=== PATIENT | female | born 1990 | race Caucasian/White ===

== ENCOUNTER → 2017-03-12 | Outpatient (CLI) | payer OTHER ==
[2017-03-14 03:13] LABS: Source CERV/ENDOCER
== END | disposition home or self-care (01) ==
LOC: LAB 08:30
PROVIDERS: Nurse Practitioner Family
DX: Z01.419 Encounter for gynecological examination (general) (routine) without abnormal findings (principal)
CPT/HCPCS: G0145

== ENCOUNTER 2020-07-16 09:26 | Emergency (ER) | payer BC ==
[~2020-07-16] VITALS: Ht 165.1 cm; Wt 83.5 kg
[2020-07-16 10:37] LABS: BASOPHILS ABSOLUTE AUTO 0.03 K/mm3 (0.00-0.23); BASOPHILS PERCENT AUTO 0 % (0-2); EOSINOPHILS ABSOLUTE AUTO 0.04 K/mm3 (0.00-0.68); EOSINOPHILS PERCENT AUTO 1 % (0-6); Hemoglobin 11.7 g/dL (11.5-16.0); IMMATURE GRAN ABSOLUTE AUTO 0.04 K/mm3 (0.00-0.10); IMMATURE GRAN PERCENT AUTO 1 % (0-1); LYMPHOCYTES ABSOLUTE AUTO 1.52 K/mm3 (0.84-5.20); LYMPHOCYTES PERCENT AUTO 19 % (21-46); MONOCYTES ABSOLUTE AUTO 0.32 K/mm3 (0.16-1.47); MONOCYTES PERCENT AUTO 4 % (4-13); Mean Corpuscular HGB 30.9 pg (26.0-34.0); Mean Corpuscular HGB Conc 34.4 g/dL (31.5-36.5); Mean Corpuscular Volume 90 fL (80-100); Mean Platelet Volume 10.2 fL (9.1-12.4); NEUTROPHILS ABSOLUTE AUTO 6.15 K/mm3 (1.96-9.15); NEUTROPHILS PERCENT AUTO 76 % (41-73); Platelet Count 168 K/mm3 (150-400); RDW Standard Deviation 39.2 fL (35.1-46.3); Red Blood Cell Count 3.79 M/mm3 (3.80-5.20)
[2020-07-16 10:45] LABS: Anion Gap 7 mmol/L (6-16); Blood Urea Nitrogen 10 mg/dL (8-24); Bun/Creatinine Ratio 16.1 (12.0-20.0); CO2, Blood 22 mmol/L (21-32); Calcium, Blood 8.2 mg/dL (8.5-10.1); Chloride, Blood 108 mmol/L (98-108); Creatinine, Blood 0.62 mg/dL (0.40-1.00); Glomerular Filtration Rate >60 (60-); Glucose, Blood 108 mg/dL (70-99); Potassium, Blood 3.5 mmol/L (3.5-5.5); Sodium, Blood 137 mmol/L (136-145)
== END 2020-07-16 12:12 | disposition home or self-care (01) ==
LOC: ER 09:26
PROVIDERS: Emergency Medicine
DX: O04.6 Delayed or excessive hemorrhage following (induced) termination of pregnancy (principal); O02.0 Blighted ovum and nonhydatidiform mole; R55 Syncope and collapse
CPT/HCPCS: 36415; 80048; 85025; 93005; 93010; 99284-25; J7120

== ENCOUNTER → 2020-12-13 | Outpatient (CLI) | payer BC ==
[2020-12-13 16:12] LABS: Source, Urine Voided
[2020-12-13 17:39] LABS: Appearance, Urine Clear (Clear); Bilirubin, Urine Neg (Neg); Blood, Urine 1+ (Neg); Color, Urine Yellow (P-Yellow); Glucose Qualitative, Urine Neg (Neg); Ketones, Urine Neg (Neg); Leukocyte Esterase, Urine 1+ (Neg); Nitrite, Urine Neg (Neg); Protein, Urine 1+ (Neg); Urobilinogen, Urine NORM (Normal)
[2020-12-13 17:50] LABS: Bacteria Mod /hpf; Red Blood Cells, Urine 0-2 /hpf (0-2); Squamous Epithelial Cells Rare /hpf (Few)
[2020-12-15 00:07] LABS: CHLAMYDIA TRACHOMATIS, NAA Negative (Negative)
== END | disposition home or self-care (01) ==
LOC: LAB SHORT 16:10
PROVIDERS: Advanced Practice Midwife
DX: Z11.3 Encounter for screening for infections with a predominantly sexual mode of transmission (principal); R82.90 Unspecified abnormal findings in urine
CPT/HCPCS: 81001; 87086; 87491; 87591

== ENCOUNTER → 2021-05-30 | Outpatient (CLI) | payer BC | END | disposition home or self-care (01) | LOC: LAB SHORT 10:20 → LAB 10:20 | DX: O09.92 Supervision of high risk pregnancy, unspecified, second trimester (principal) | CPT/HCPCS: 87081; 87150 ==

== ENCOUNTER 2021-06-26 20:05 | Inpatient (IN) | payer BC ==
[~2021-06-26] VITALS: Ht 165.1 cm; Wt 94.0 kg
[2021-06-26 20:54] LABS: BASOPHILS ABSOLUTE AUTO 0.04 K/mm3 (0.00-0.23); BASOPHILS PERCENT AUTO 0 % (0-2); EOSINOPHILS ABSOLUTE AUTO 0.07 K/mm3 (0.00-0.68); EOSINOPHILS PERCENT AUTO 1 % (0-6); Hematocrit 36.6 % (33.0-51.0); Hemoglobin 12.8 g/dL (11.5-16.0); IMMATURE GRAN ABSOLUTE AUTO 0.14 K/mm3 (0.00-0.10); IMMATURE GRAN PERCENT AUTO 1 % (0-1); LYMPHOCYTES ABSOLUTE AUTO 2.36 K/mm3 (0.84-5.20); LYMPHOCYTES PERCENT AUTO 21 % (21-46); MONOCYTES ABSOLUTE AUTO 0.74 K/mm3 (0.16-1.47); MONOCYTES PERCENT AUTO 7 % (4-13); Mean Corpuscular HGB 31.8 pg (26.0-34.0); Mean Corpuscular Volume 91 fL (80-100); NEUTROPHILS ABSOLUTE AUTO 8.12 K/mm3 (1.96-9.15); NEUTROPHILS PERCENT AUTO 71 % (41-73); Platelet Count 159 K/mm3 (150-400); RDW Coefficient Variation 12.6 % (11.7-14.2); RDW Standard Deviation 41.4 fL (35.1-46.3); Red Blood Cell Count 4.03 M/mm3 (3.80-5.20); White Blood Cell Count 11.47 K/mm3 (4.00-11.30)
[2021-06-26] MEDS ORDERED: ONE-A-DAY PREN1 EAC1 PO (21:22)
[2021-06-26] MEDS ORDERED: FAMO20 PO (21:22)
[2021-06-29 05:20] LABS: BASOPHILS ABSOLUTE AUTO 0.03 K/mm3 (0.00-0.23); BASOPHILS PERCENT AUTO 0 % (0-2); EOSINOPHILS ABSOLUTE AUTO 0.04 K/mm3 (0.00-0.68); EOSINOPHILS PERCENT AUTO 0 % (0-6); Hematocrit 28.5 % (33.0-51.0); Hemoglobin 9.8 g/dL (11.5-16.0); IMMATURE GRAN ABSOLUTE AUTO 0.17 K/mm3 (0.00-0.10); IMMATURE GRAN PERCENT AUTO 1 % (0-1); LYMPHOCYTES ABSOLUTE AUTO 0.79 K/mm3 (0.84-5.20); LYMPHOCYTES PERCENT AUTO 5 % (21-46); MONOCYTES ABSOLUTE AUTO 0.49 K/mm3 (0.16-1.47); MONOCYTES PERCENT AUTO 3 % (4-13); Mean Corpuscular HGB 31.6 pg (26.0-34.0); Mean Corpuscular HGB Conc 34.4 g/dL (31.5-36.5); Mean Corpuscular Volume 92 fL (80-100); Mean Platelet Volume 10.6 fL (9.1-12.4); NEUTROPHILS ABSOLUTE AUTO 13.03 K/mm3 (1.96-9.15); NEUTROPHILS PERCENT AUTO 90 % (41-73); Platelet Count 126 K/mm3 (150-400); RDW Coefficient Variation 13.1 % (11.7-14.2); RDW Standard Deviation 43.5 fL (35.1-46.3); White Blood Cell Count 14.55 K/mm3 (4.00-11.30)
--- NOTE | 2021-06-29 09:00 | NUR ---
ambulate in [place],
[2021-06-29] MEDS ORDERED: Percocet 5-3251 EACH PO (09:14)
[2021-06-29] MEDS ORDERED: IBUP800 PO (09:15)
--- NOTE | 2021-06-29 15:00 | NUR ---
pt reports doing well, encoruaged to call if needs pain medications
--- NOTE | 2021-06-29 16:11 | NUR ---
pt has ambulated in [place] 3 times, voiding without difficulty, doing well. is aware that can have pain medication anytime she needs it. is going better, pt is pumping after feeds and supplementing baby. pt and have a system
--- NOTE | 2021-06-30 13:27 | NUR ---
DC INSTRUCTIONS GONE OVER [facility] PT, DENIES ANY QUESTIONS, HAS PPFU APPT FOR SUNDAY. HAS A FEEDING PLAN WORKED OUT WITH , AND WILL FOLLOW UP WITH CNM IN THE OFFICE TO WORK WITH FEEDS AND PT IS AWARE CAN CALL AND MAKE AND APPT WITH HERE FOR ADDITIONAL HELP IF SHE NEEDS IT. ALREADY HAS SCRIPTS FILLED, IS AWARE ABOUT TYLENOL IN PERCOCET AND NOT TO TAKE ADDITIONAL TYLENOL IF TAKING PERCOCET
== END 2021-06-30 14:00 | disposition home or self-care (01) | DRG 788 ==
LOC: OBS 20:05 → BC 20:08 → OBS 20:11 → BC 20:12
PROVIDERS: Obstetrics & Gynecology; ADMIT Advanced Practice Midwife
PROC: 10H07YZ Insertion of Other Device into Products of Conception, Via Natural or Artificial Opening (ICD-10-PCS; 2021-06-28)
PROC: 10D00Z1 Extraction of Products of Conception, Low, Open Approach (ICD-10-PCS; principal; 2021-06-28 02:15)
DX: O99.892 Other specified diseases and conditions complicating childbirth (principal); Z3A.40 40 weeks gestation of pregnancy; Z37.0 Single live birth; D27.9 Benign neoplasm of unspecified ovary; O64.2XX0 Obstructed labor due to face presentation, not applicable or unspecified; Z86.16 Personal history of COVID-19; Z98.890 Other specified postprocedural states; Z90.89 Acquired absence of other organs; Z88.8 Allergy status to other drugs, medicaments and biological substances; Z88.2 Allergy status to sulfonamides; Z88.1 Allergy status to other antibiotic agents; Z79.899 Other long term (current) drug therapy; Z91.018 Allergy to other foods
CPT/HCPCS: 36415; 51702; 85025; 86850; 86900; 86901; A9270; J0456; J0690; J1885; J2001; J2210; J2405; J2590; J2765; J3010; J7050; J7120

== ENCOUNTER → 2022-06-29 | Outpatient (CLI) | payer OTHER ==
[~2022-06-29] MED LIST: FAMO20 PO; IBUP800 PO; ONE-A-DAY PREN1 EAC1 PO; Percocet 5-3251 EACH PO
[2022-07-05 14:09] LABS: HPV 16 Negative (Negative); HPV 18 Negative (Negative); HPV OTHER HR TYPES Negative (Negative)
== END | disposition home or self-care (01) ==
LOC: LAB SHORT 15:47 → LAB EV 15:47
PROVIDERS: Advanced Practice Midwife
DX: Z01.419 Encounter for gynecological examination (general) (routine) without abnormal findings (principal)
CPT/HCPCS: 87624; G0145

== ENCOUNTER 2022-10-07 04:44 | Emergency (ER) | payer OTHER ==
[~2022-10-07] VITALS: Ht 165.1 cm; Wt 81.7 kg
[2022-10-07 05:32] LABS: BASOPHILS ABSOLUTE AUTO 0.02 K/mm3 (0.00-0.23); BASOPHILS PERCENT AUTO 0 % (0-2); EOSINOPHILS ABSOLUTE AUTO 0.03 K/mm3 (0.00-0.68); EOSINOPHILS PERCENT AUTO 1 % (0-6); Hematocrit 34.1 % (33.0-51.0); Hemoglobin 12.3 g/dL (11.5-16.0); IMMATURE GRAN ABSOLUTE AUTO 0.03 K/mm3 (0.00-0.10); IMMATURE GRAN PERCENT AUTO 1 % (0-1); LYMPHOCYTES ABSOLUTE AUTO 1.89 K/mm3 (0.84-5.20); LYMPHOCYTES PERCENT AUTO 30 % (21-46); MONOCYTES ABSOLUTE AUTO 0.27 K/mm3 (0.16-1.47); MONOCYTES PERCENT AUTO 4 % (4-13); Mean Corpuscular HGB 31.1 pg (26.0-34.0); Mean Corpuscular HGB Conc 36.1 g/dL (31.5-36.5); Mean Corpuscular Volume 86 fL (80-100); Mean Platelet Volume 9.5 fL (9.1-12.4); NEUTROPHILS ABSOLUTE AUTO 4.02 K/mm3 (1.96-9.15); NEUTROPHILS PERCENT AUTO 64 % (41-73); Platelet Count 146 K/mm3 (150-400); RDW Coefficient Variation 12.1 % (11.7-14.2); RDW Standard Deviation 38.2 fL (35.1-46.3); Red Blood Cell Count 3.95 M/mm3 (3.80-5.20); White Blood Cell Count 6.26 K/mm3 (4.00-11.30)
[2022-10-07 06:15] LABS: Albumin, Blood 3.2 g/dL (3.4-5.0); Albumin/Globulin Ratio 0.9 (0.8-1.8); Bilirubin, Total 0.5 mg/dL (0.1-1.0); Bun/Creatinine Ratio 18.7 (12.0-20.0); Calcium, Blood 8.4 mg/dL (8.5-10.1); Creatinine, Blood 0.48 mg/dL (0.40-1.00); Globulin, Blood 3.4 g/dL (2.2-4.0); Potassium, Blood 3.6 mmol/L (3.5-5.5); Total Protein, Blood 6.6 g/dL (6.4-8.2)
[2022-10-07 07:41] VITALS: BP 103/71
== END 2022-10-07 07:40 | disposition home or self-care (01) ==
LOC: ER 04:44
PROVIDERS: Student in an Organized Health Care Education/Training Program
DX: O20.0 Threatened abortion (principal); O99.111 Other diseases of the blood and blood-forming organs and certain disorders involving the immune mechanism complicating pregnancy, first trimester; D69.6 Thrombocytopenia, unspecified; Z88.2 Allergy status to sulfonamides; Z88.1 Allergy status to other antibiotic agents; Z91.018 Allergy to other foods; Z79.899 Other long term (current) drug therapy; Z3A.11 11 weeks gestation of pregnancy
CPT/HCPCS: 76801; 80053; 84702; 85025; 86900; 86901; 99284-25

== ENCOUNTER 2022-10-09 18:38 | Observation (INO) | payer OTHER ==
[~2022-10-09] VITALS: Ht 165.1 cm; Wt 81.7 kg
[2022-10-09 19:12] LABS: BASOPHILS ABSOLUTE AUTO 0.03 K/mm3 (0.00-0.23); BASOPHILS PERCENT AUTO 0 % (0-2); EOSINOPHILS ABSOLUTE AUTO 0.05 K/mm3 (0.00-0.68); EOSINOPHILS PERCENT AUTO 0 % (0-6); Hemoglobin 10.2 g/dL (11.5-16.0); IMMATURE GRAN ABSOLUTE AUTO 0.08 K/mm3 (0.00-0.10); IMMATURE GRAN PERCENT AUTO 1 % (0-1); LYMPHOCYTES PERCENT AUTO 19 % (21-46); MONOCYTES PERCENT AUTO 4 % (4-13); Mean Corpuscular HGB 31.1 pg (26.0-34.0); Mean Corpuscular HGB Conc 35.2 g/dL (31.5-36.5); Mean Corpuscular Volume 88 fL (80-100); Mean Platelet Volume 10.1 fL (9.1-12.4); NEUTROPHILS ABSOLUTE AUTO 8.98 K/mm3 (1.96-9.15); NEUTROPHILS PERCENT AUTO 75 % (41-73); Platelet Count 166 K/mm3 (150-400); RDW Coefficient Variation 12.2 % (11.7-14.2); Red Blood Cell Count 3.28 M/mm3 (3.80-5.20); White Blood Cell Count 11.94 K/mm3 (4.00-11.30)
[2022-10-09 19:51] LABS: Albumin, Blood 2.8 g/dL (3.4-5.0); Albumin/Globulin Ratio 0.9 (0.8-1.8); Bilirubin, Total 0.1 mg/dL (0.1-1.0); Bun/Creatinine Ratio 21.7 (12.0-20.0); Calcium, Blood 8.6 mg/dL (8.5-10.1); Creatinine, Blood 0.51 mg/dL (0.40-1.00); Potassium, Blood 3.3 mmol/L (3.5-5.5); Total Protein, Blood 5.8 g/dL (6.4-8.2)
[2022-10-09 21:01] LABS: BASOPHILS ABSOLUTE AUTO 0.02 K/mm3 (0.00-0.23); BASOPHILS PERCENT AUTO 0 % (0-2); EOSINOPHILS PERCENT AUTO 0 % (0-6); Hematocrit 25.5 % (33.0-51.0); Hemoglobin 8.8 g/dL (11.5-16.0); IMMATURE GRAN ABSOLUTE AUTO 0.09 K/mm3 (0.00-0.10); IMMATURE GRAN PERCENT AUTO 1 % (0-1); LYMPHOCYTES ABSOLUTE AUTO 1.08 K/mm3 (0.84-5.20); LYMPHOCYTES PERCENT AUTO 8 % (21-46); MONOCYTES ABSOLUTE AUTO 0.32 K/mm3 (0.16-1.47); MONOCYTES PERCENT AUTO 2 % (4-13); Mean Corpuscular HGB 30.7 pg (26.0-34.0); Mean Corpuscular HGB Conc 34.5 g/dL (31.5-36.5); Mean Corpuscular Volume 89 fL (80-100); Mean Platelet Volume 10.2 fL (9.1-12.4); NEUTROPHILS ABSOLUTE AUTO 11.62 K/mm3 (1.96-9.15); NEUTROPHILS PERCENT AUTO 89 % (41-73); Platelet Count 144 K/mm3 (150-400); RDW Coefficient Variation 12.1 % (11.7-14.2); RDW Standard Deviation 39.3 fL (35.1-46.3); Red Blood Cell Count 2.87 M/mm3 (3.80-5.20); White Blood Cell Count 13.13 K/mm3 (4.00-11.30)
[2022-10-09 21:26] LABS: Source, Urine Clean Catch
[2022-10-09 21:30] LABS: Appearance, Urine Hazy (Clear); Bilirubin, Urine Neg (Neg); Blood, Urine 5+ (Neg); Color, Urine Yellow (P-Yellow); Glucose Qualitative, Urine Neg (Neg); Ketones, Urine Neg (Neg); Leukocyte Esterase, Urine Neg (Neg); Nitrite, Urine Neg (Neg); Protein, Urine 2+ (Neg); Specific Gravity, Urine 1.025 (1.003-1.022); Urobilinogen, Urine NORM (Normal)
[2022-10-09 21:41] LABS: Amorphous Light (0-Heavy); Bacteria Few /hpf; Granular Casts 0-2 /lpf (0); Red Blood Cells, Urine 25-50 /hpf (0-2); Squamous Epithelial Cells Rare /hpf (Few); White Blood Cells, Urine 0-2 /hpf (0-5)
[2022-10-10] VITALS (8 sets, daily range): BP systolic 92–112; BP diastolic 56–65
--- NOTE | 2022-10-10 01:09 | NUR ---
PT ARRIVED TO ROOM 223 ACCOMPANIED BY . BP STABLE, HR 90'S. INC >1'TEENS WHEN UP, DENIES CP/PRESSURE. PT ALERT, REPORTS DIZZINESS WHEN UP. PT DENIES PAIN, REP VAGINAL BLEEDING DECREASING, URINE YELLOW W/FEW SMALL CLOTS, LIDA PAD IN PLACE W/SMALL AMT DARK RED SPOTTING. DR PRUETT UPDATED, NEW ORDERS REC.
[2022-10-10 03:43] LABS: BASOPHILS ABSOLUTE AUTO 0.02 K/mm3 (0.00-0.23); BASOPHILS PERCENT AUTO 0 % (0-2); EOSINOPHILS ABSOLUTE AUTO 0.02 K/mm3 (0.00-0.68); EOSINOPHILS PERCENT AUTO 0 % (0-6); Hematocrit 21.3 % (33.0-51.0); Hemoglobin 7.5 g/dL (11.5-16.0); IMMATURE GRAN ABSOLUTE AUTO 0.04 K/mm3 (0.00-0.10); IMMATURE GRAN PERCENT AUTO 1 % (0-1); LYMPHOCYTES ABSOLUTE AUTO 2.11 K/mm3 (0.84-5.20); LYMPHOCYTES PERCENT AUTO 27 % (21-46); MONOCYTES ABSOLUTE AUTO 0.28 K/mm3 (0.16-1.47); MONOCYTES PERCENT AUTO 4 % (4-13); Mean Corpuscular HGB 31.1 pg (26.0-34.0); Mean Corpuscular HGB Conc 35.2 g/dL (31.5-36.5); Mean Corpuscular Volume 88 fL (80-100); Mean Platelet Volume 10.2 fL (9.1-12.4); NEUTROPHILS ABSOLUTE AUTO 5.43 K/mm3 (1.96-9.15); NEUTROPHILS PERCENT AUTO 69 % (41-73); Platelet Count 142 K/mm3 (150-400); RDW Coefficient Variation 12.2 % (11.7-14.2); RDW Standard Deviation 39.7 fL (35.1-46.3); Red Blood Cell Count 2.41 M/mm3 (3.80-5.20)
--- NOTE | 2022-10-10 07:34 | NUR ---
PT VSS SINCE ARRIVING TO FLOOR. LIDA PAD W/SMALL AMT DARK RED/BROWN SPOTTING THIS AM, SOME LIGHT PINK BLOOD NOTED AFTER WIPING. PT DENIED ABD PAIN, ABD SOFT TO PALP. PT REP FEELING LESS DIZZY AND APPEARS LESS PALE THIS AM. PT EMOTIONAL THIS AM, SUPPORT PROVIDED. IVF CONT PER ORDERS.
[2022-10-10 15:56] LABS: BASOPHILS ABSOLUTE AUTO 0.02 K/mm3 (0.00-0.23); BASOPHILS PERCENT AUTO 0 % (0-2); EOSINOPHILS ABSOLUTE AUTO 0.02 K/mm3 (0.00-0.68); EOSINOPHILS PERCENT AUTO 0 % (0-6); Hemoglobin 8.2 g/dL (11.5-16.0); IMMATURE GRAN ABSOLUTE AUTO 0.03 K/mm3 (0.00-0.10); IMMATURE GRAN PERCENT AUTO 0 % (0-1); LYMPHOCYTES ABSOLUTE AUTO 1.86 K/mm3 (0.84-5.20); LYMPHOCYTES PERCENT AUTO 27 % (21-46); MONOCYTES ABSOLUTE AUTO 0.28 K/mm3 (0.16-1.47); MONOCYTES PERCENT AUTO 4 % (4-13); Mean Corpuscular HGB 31.8 pg (26.0-34.0); Mean Corpuscular HGB Conc 35.7 g/dL (31.5-36.5); Mean Corpuscular Volume 89 fL (80-100); Mean Platelet Volume 9.8 fL (9.1-12.4); NEUTROPHILS ABSOLUTE AUTO 4.72 K/mm3 (1.96-9.15); NEUTROPHILS PERCENT AUTO 68 % (41-73); Platelet Count 132 K/mm3 (150-400); RDW Coefficient Variation 12.8 % (11.7-14.2); RDW Standard Deviation 41.5 fL (35.1-46.3); Red Blood Cell Count 2.58 M/mm3 (3.80-5.20); White Blood Cell Count 6.93 K/mm3 (4.00-11.30)
[2022-10-10] MEDS ORDERED: FERSU300 PO (16:49)
--- NOTE | 2022-10-10 17:01 | NUR ---
DISCHARGE HAS HAD NO VAGINAL BLEEDING TODAY. URINE CLEAR THIS AFTERNOON. ONLY VERY FEW SCANT SPOTS OF CLOTTED BLOOD THIS AM. NO ABD PAIN & FEELS COMFORTABLE w/ DC HOME. ESCORTTED OUT VIA WC.
== END 2022-10-10 17:01 | disposition home or self-care (01) ==
LOC: ER 18:38 → SURS 18:39
PROVIDERS: Obstetrics & Gynecology; ADMIT Emergency Medicine
DX: O20.9 Hemorrhage in early pregnancy, unspecified (principal); Z3A.12 12 weeks gestation of pregnancy; Z88.2 Allergy status to sulfonamides; Z88.1 Allergy status to other antibiotic agents; Z88.8 Allergy status to other drugs, medicaments and biological substances
CPT/HCPCS: 36415; 36430; 76801; 76817; 80053; 81001; 84702; 85025; 86850; 86900; 86901; 86923; 99285-25; A9270; G0378; J7030; J7050; J7120; P9016

== ENCOUNTER 2022-10-11 13:50 | Inpatient (IN) | payer OTHER ==
[2022-10-11] VITALS (11 sets, daily range): BP systolic 86–118; BP diastolic 50–59
[~2022-10-11] VITALS: Ht 165.1 cm; Wt 81.7 kg
[~2022-10-11 13:50] MED LIST changes: +FERSU300 PO
[2022-10-11 14:25] LABS: Calcium, Ionized (POC) 1.03 mmol/L (1.10-1.46); Chloride (POC) 106 mmol/L (98-108); Creatinine (POC) 0.4 mg/dL (0.6-1.0); Glucose (ISTAT POC) 124 mg/dL (70-99); Hemoglobin (POC) 8.5 g/dL (12.0-16.0); Potassium (POC) 3.4 mmol/L (3.5-5.5); Sodium (POC) 137 mmol/L (135-148); Total CO2 (POC) 17 mmol/L (21-32)
[2022-10-11 14:35] LABS: BASOPHILS ABSOLUTE AUTO 0.02 K/mm3 (0.00-0.23); BASOPHILS PERCENT AUTO 0 % (0-2); EOSINOPHILS ABSOLUTE AUTO 0.03 K/mm3 (0.00-0.68); EOSINOPHILS PERCENT AUTO 0 % (0-6); Hematocrit 26.3 % (33.0-51.0); Hemoglobin 9.2 g/dL (11.5-16.0); IMMATURE GRAN ABSOLUTE AUTO 0.04 K/mm3 (0.00-0.10); IMMATURE GRAN PERCENT AUTO 1 % (0-1); LYMPHOCYTES ABSOLUTE AUTO 2.53 K/mm3 (0.84-5.20); LYMPHOCYTES PERCENT AUTO 35 % (21-46); MONOCYTES ABSOLUTE AUTO 0.24 K/mm3 (0.16-1.47); MONOCYTES PERCENT AUTO 3 % (4-13); Mean Corpuscular HGB 31.6 pg (26.0-34.0); Mean Corpuscular Volume 90 fL (80-100); Mean Platelet Volume 10.4 fL (9.1-12.4); NEUTROPHILS ABSOLUTE AUTO 4.33 K/mm3 (1.96-9.15); NEUTROPHILS PERCENT AUTO 60 % (41-73); Platelet Count 198 K/mm3 (150-400); RDW Standard Deviation 42.5 fL (35.1-46.3); Red Blood Cell Count 2.91 M/mm3 (3.80-5.20); White Blood Cell Count 7.19 K/mm3 (4.00-11.30)
[2022-10-11 14:55] LABS: Albumin, Blood 3.1 g/dL (3.4-5.0); Bilirubin, Total 0.2 mg/dL (0.1-1.0); Bun/Creatinine Ratio 12.1 (12.0-20.0); Calcium, Blood 8.1 mg/dL (8.5-10.1); Creatinine, Blood 0.5 mg/dL (0.40-1.00); Globulin, Blood 3.1 g/dL (2.2-4.0); Potassium, Blood 3.5 mmol/L (3.5-5.5); Total Protein, Blood 6.2 g/dL (6.4-8.2)
[2022-10-11 14:57] LABS: International Normalized Ratio 0.96; Prothrombin Time Results 10.1 Sec (9.7-11.5)
[2022-10-11 16:35] LABS: Hematocrit 25.3 % (33.0-51.0); Hemoglobin 8.6 g/dL (11.5-16.0)
[2022-10-11 21:05] LABS: BASOPHILS ABSOLUTE AUTO 0.02 K/mm3 (0.00-0.23); BASOPHILS PERCENT AUTO 0 % (0-2); EOSINOPHILS PERCENT AUTO 0 % (0-6); Hematocrit 23.4 % (33.0-51.0); Hemoglobin 8.3 g/dL (11.5-16.0); IMMATURE GRAN ABSOLUTE AUTO 0.06 K/mm3 (0.00-0.10); IMMATURE GRAN PERCENT AUTO 1 % (0-1); LYMPHOCYTES ABSOLUTE AUTO 1.81 K/mm3 (0.84-5.20); LYMPHOCYTES PERCENT AUTO 16 % (21-46); MONOCYTES ABSOLUTE AUTO 0.26 K/mm3 (0.16-1.47); MONOCYTES PERCENT AUTO 2 % (4-13); Mean Corpuscular HGB 30.5 pg (26.0-34.0); Mean Corpuscular HGB Conc 35.5 g/dL (31.5-36.5); Mean Corpuscular Volume 86 fL (80-100); Mean Platelet Volume 10.3 fL (9.1-12.4); NEUTROPHILS ABSOLUTE AUTO 9.48 K/mm3 (1.96-9.15); NEUTROPHILS PERCENT AUTO 82 % (41-73); Platelet Count 148 K/mm3 (150-400); RDW Coefficient Variation 15.3 % (11.7-14.2); RDW Standard Deviation 47.6 fL (35.1-46.3); Red Blood Cell Count 2.72 M/mm3 (3.80-5.20); White Blood Cell Count 11.63 K/mm3 (4.00-11.30)
[2022-10-12] VITALS (62 sets, daily range): BP systolic 84–160; BP diastolic 49–103
[2022-10-12 05:58] LABS: BASOPHILS ABSOLUTE AUTO 0.01 K/mm3 (0.00-0.23); BASOPHILS PERCENT AUTO 0 % (0-2); EOSINOPHILS ABSOLUTE AUTO 0.03 K/mm3 (0.00-0.68); EOSINOPHILS PERCENT AUTO 0 % (0-6); Hematocrit 18.8 % (33.0-51.0); Hemoglobin 6.6 g/dL (11.5-16.0); IMMATURE GRAN ABSOLUTE AUTO 0.08 K/mm3 (0.00-0.10); IMMATURE GRAN PERCENT AUTO 1 % (0-1); LYMPHOCYTES ABSOLUTE AUTO 2.11 K/mm3 (0.84-5.20); LYMPHOCYTES PERCENT AUTO 27 % (21-46); MONOCYTES ABSOLUTE AUTO 0.28 K/mm3 (0.16-1.47); MONOCYTES PERCENT AUTO 4 % (4-13); Mean Corpuscular HGB 30.3 pg (26.0-34.0); Mean Corpuscular HGB Conc 35.1 g/dL (31.5-36.5); Mean Corpuscular Volume 86 fL (80-100); Mean Platelet Volume 10.1 fL (9.1-12.4); NEUTROPHILS ABSOLUTE AUTO 5.32 K/mm3 (1.96-9.15); NEUTROPHILS PERCENT AUTO 68 % (41-73); Platelet Count 126 K/mm3 (150-400); RDW Coefficient Variation 15.3 % (11.7-14.2); RDW Standard Deviation 47.1 fL (35.1-46.3); Red Blood Cell Count 2.18 M/mm3 (3.80-5.20); White Blood Cell Count 7.83 K/mm3 (4.00-11.30)
--- NOTE | 2022-10-12 08:34 | NUR ---
plan of care for today per dr nassar, a repeat US, advance pt to regular diet and to give 1 unit of packed red blood cells to pt pt up to bathroom, 700 cc void that was yellow, no pink or red in urine, very scant amount of blood about 1/2 cm wide and 3 cm long not saturated into the pad
--- NOTE | 2022-10-12 09:30 | NUR ---
TALKED TO DR PRUETT. PT HAVING A LITTLE MORE BLEEDING VAGINALLY AND US WAS GOING TO DO THE TRANSVAG US. DR PRUETT REPORTS OK TO CONTINUE TO DO THE TRANSVAG US WITH THE BLEEDING
--- NOTE | 2022-10-12 12:04 | NUR ---
UP TO BATHROOM, WAS ABLE TO POOP. PT HAD VERY SCANT VAG BLEEDING 1/2 CM BY 2 CM ON PAD THAT WAS VERY DARK. CURRENTLY IN BED HAVING A LITTLE MORE DISCHARGE, LOOKS LIKE A WATERY RED IN COLOR.
--- NOTE | 2022-10-12 12:58 | NUR ---
dr nassar talking with pt. updating pt on some of the us report.
--- NOTE | 2022-10-12 13:52 | NUR ---
PT IS SL, DR PRUETT REPORTED THAT WHEN DONE WITH BLOOD COULD SL PT, WILL CALL FOR IV US. RT ARM A LITTLE PUFFY, BUT FLUSHES WELL AND PT CAN TASTE SALINE FLUSH. THE LT WRIST IS TENDER TO FLUSH AND INFUSE FLUIDS THRU.
--- NOTE | 2022-10-12 13:55 | NUR ---
UP TO BATHROOM. LIGHT AMOUNT OF BLEEDING ON PAD, NOT ENCOUGH TO WEIGH LOOKED MORE WATERY THAN BRIGHT RED BLEEDING. CALLED PCU FOR A IV US. THEY REPORT WILL BE DOWN IN A LITTLE WHILE TO TRY ONE
--- NOTE | 2022-10-12 13:59 | NUR ---
1030 SHAGGY CALLED WITH US REPORT FOR DR PRUETT, CALLED DR PRUETT WITH RESULT.
--- NOTE | 2022-10-12 14:44 | NUR ---
DR PRUETT CALLED TO COME, GOT PT BACK TO BED FROM TOILET BLOOD JUST DRIPPING FROM VAGINA. PT HAS THE TOILET HAT FILLED
[2022-10-12 15:12] LABS: BASOPHILS ABSOLUTE AUTO 0.01 K/mm3 (0.00-0.23); BASOPHILS PERCENT AUTO 0 % (0-2); EOSINOPHILS ABSOLUTE AUTO 0.03 K/mm3 (0.00-0.68); EOSINOPHILS PERCENT AUTO 0 % (0-6); Hematocrit 22.9 % (33.0-51.0); Hemoglobin 8.1 g/dL (11.5-16.0); IMMATURE GRAN ABSOLUTE AUTO 0.07 K/mm3 (0.00-0.10); IMMATURE GRAN PERCENT AUTO 1 % (0-1); LYMPHOCYTES ABSOLUTE AUTO 2.15 K/mm3 (0.84-5.20); LYMPHOCYTES PERCENT AUTO 27 % (21-46); MONOCYTES ABSOLUTE AUTO 0.34 K/mm3 (0.16-1.47); MONOCYTES PERCENT AUTO 4 % (4-13); Mean Corpuscular HGB 30.2 pg (26.0-34.0); Mean Corpuscular HGB Conc 35.4 g/dL (31.5-36.5); Mean Corpuscular Volume 85 fL (80-100); Mean Platelet Volume 10.3 fL (9.1-12.4); NEUTROPHILS ABSOLUTE AUTO 5.45 K/mm3 (1.96-9.15); NEUTROPHILS PERCENT AUTO 68 % (41-73); Platelet Count 152 K/mm3 (150-400); RDW Coefficient Variation 15.3 % (11.7-14.2); RDW Standard Deviation 46.5 fL (35.1-46.3); Red Blood Cell Count 2.68 M/mm3 (3.80-5.20); White Blood Cell Count 8.05 K/mm3 (4.00-11.30)
--- NOTE | 2022-10-12 15:55 | NUR ---
DR PRUETT AT BEDSIDE, PT TO GT 400MCG CYTO ORALLY BUCALLY
--- NOTE | 2022-10-12 16:05 | NUR ---
LAST 10 MINUTES PT HAS BEEN HOT, SWEATY, TACHYCARDIC, DR PRUETT AWARE, BLOOD PRESSURE IS IN THE RANGE IT HAS BEEN IN [place]. BIOX IS 96-99%
--- NOTE | 2022-10-12 16:10 | NUR ---
DR PRUETT PREPARING PT FOR OR, CALLING NOW, PT CONTINUES TO BLEED VAGINALLY
--- NOTE | 2022-10-12 16:14 | NUR ---
CONSENTING PT FOR OR FOR D AND C,
--- NOTE | 2022-10-12 16:25 | NUR ---
DAY SURGERY READY FOR PT, TAKING PT UP VIA BED TO DAYSURGERY, REPORT GIVEN, DR PRUETT REMAINED AT PT BEDSIDE ANSWERING QUESTIONS. BLOOD FINISHING UP IN DAYSURGERY AND LR AT 250/HR INFUSING ON A PUMP
--- NOTE | 2022-10-12 16:56 | NUR ---
10/12/22 2917 Carli Kapadia PATIENT NOTED TO BE PALE AND DIAPHORETIC. JOLIE BLEEDING NOTED FROM VAGINA.
--- NOTE | 2022-10-12 17:03 | NUR ---
PT TO [facility] VIA BED FOR BRIEF STOP EN ROUTE TO OR FOR EMERGENCY D&C. PT ESCORTED BY 2 FBP RN, DR. PRUETT & PT'S SPOUSE. PT COVERED IN ONLY A SHEET C/O BEING HOT; COLD WASH CLOTH ON NECK, ICE PACK ON FOREHEAD. PT APPEARS PALE & CLAMMY, WARM TO TOUCH. LACTATED RINGERS & BLOOD TRANSFUSING VIA SEPARATE LINES. PT HYPOTENSIVE & TACHYCARDIC UPON ARRIVAL. LR & BLOOD LINES BOTH WIDE OPEN. DR. PRUETT AT BEDSIDE THROUGHOUT STOP IN [facility]. PATIENT & SPOUSE BOTH CALM, ANSWERS APPROPRIATELY, VERBALIZING UNDERSTANDING OF PLAN OF CARE, AND IN AGREEMENT.
--- NOTE | 2022-10-12 18:25 | NUR ---
HIMA CNM IN ROOM TALKING WITH PT
--- NOTE | 2022-10-12 18:46 | NUR ---
HOLDING OFF ON IM PITOCIN, PT DOESNT WANT IT AT THIS TIME, PT HAS BEEN IN ROOM FOR 30+ MINUTES AND PAD HAS NO DRAINAGE ON IT.
[2022-10-12 21:22] LABS: Hematocrit 27.4 % (33.0-51.0); Hemoglobin 9.9 g/dL (11.5-16.0); Mean Corpuscular HGB 30.8 pg (26.0-34.0); Mean Corpuscular HGB Conc 36.1 g/dL (31.5-36.5); Mean Corpuscular Volume 85 fL (80-100); Mean Platelet Volume 10.2 fL (9.1-12.4); Platelet Count 142 K/mm3 (150-400); RDW Coefficient Variation 15.1 % (11.7-14.2); RDW Standard Deviation 46.5 fL (35.1-46.3); Red Blood Cell Count 3.21 M/mm3 (3.80-5.20); White Blood Cell Count 15.55 K/mm3 (4.00-11.30)
[2022-10-13] VITALS (9 sets, daily range): BP systolic 96–115; BP diastolic 52–61
[2022-10-13 06:48] LABS: Hematocrit 20.2 % (33.0-51.0); Hemoglobin 7.3 g/dL (11.5-16.0); Mean Corpuscular HGB 30.5 pg (26.0-34.0); Mean Corpuscular HGB Conc 36.1 g/dL (31.5-36.5); Mean Corpuscular Volume 85 fL (80-100); Mean Platelet Volume 10.4 fL (9.1-12.4); Platelet Count 129 K/mm3 (150-400); RDW Coefficient Variation 15.5 % (11.7-14.2); RDW Standard Deviation 46.5 fL (35.1-46.3); Red Blood Cell Count 2.39 M/mm3 (3.80-5.20); White Blood Cell Count 10.35 K/mm3 (4.00-11.30)
== END 2022-10-13 18:10 | disposition home or self-care (01) | DRG 770 ==
LOC: ER 13:50 → BC 17:38
PROVIDERS: Emergency Medicine; Physician Assistant; ADMIT Obstetrics & Gynecology
PROC: 0U7C7ZZ Dilation of Cervix, Via Natural or Artificial Opening (ICD-10-PCS; 2022-10-12)
PROC: 30233N1 Transfusion of Nonautologous Red Blood Cells into Peripheral Vein, Percutaneous Approach (ICD-10-PCS; 2022-10-12)
PROC: 10D17ZZ Extraction of Products of Conception, Retained, Via Natural or Artificial Opening (ICD-10-PCS; principal; 2022-10-12 16:30)
DX: O03.1 Delayed or excessive hemorrhage following incomplete spontaneous abortion (principal); D62 Acute posthemorrhagic anemia; O67.8 Other intrapartum hemorrhage; I95.9 Hypotension, unspecified; Z88.2 Allergy status to sulfonamides; Z88.8 Allergy status to other drugs, medicaments and biological substances; Z91.018 Allergy to other foods; Z79.899 Other long term (current) drug therapy
CPT/HCPCS: 36415; 36430; 76801; 76817; 76998; 80047; 80053; 84702; 85014; 85018; 85025; 85027; 85610; 85730; 86850; 86900; 86901; 86923; 88305; 96361; 96374; 99285-25; A9270; J0690; J1100; J1720; J1885; J2250; J2371; J2405; J2590; J2704; J2916; J3010; J7030; J7120; P9016

== ENCOUNTER 2022-10-17 07:45 | Inpatient (IN) | payer OTHER ==
[~2022-10-17] VITALS: Ht 165.1 cm; Wt 85.8 kg
[2022-10-17] VITALS (34 sets, daily range): BP systolic 83–109; BP diastolic 37–87
[2022-10-17 08:20] LABS: Calcium, Ionized (POC) 1.16 mmol/L (1.10-1.46); Chloride (POC) 108 mmol/L (98-108); Creatinine (POC) 0.6 mg/dL (0.6-1.0); Glucose (ISTAT POC) 92 mg/dL (70-99); Hemoglobin (POC) 7.8 g/dL (12.0-16.0); Potassium (POC) 3.6 mmol/L (3.5-5.5); Sodium (POC) 141 mmol/L (135-148); Total CO2 (POC) 23 mmol/L (21-32)
[2022-10-17 09:16] LABS: Bilirubin, Total 0.4 mg/dL (0.1-1.0); Bun/Creatinine Ratio 13.6 (12.0-20.0); Calcium, Blood 8.2 mg/dL (8.5-10.1); Creatinine, Blood 0.66 mg/dL (0.40-1.00); Globulin, Blood 2.9 g/dL (2.2-4.0); Potassium, Blood 3.6 mmol/L (3.5-5.5); Total Protein, Blood 5.9 g/dL (6.4-8.2)
[2022-10-17 09:32] LABS: BASOPHILS ABSOLUTE AUTO 0.01 K/mm3 (0.00-0.23); BASOPHILS PERCENT AUTO 0 % (0-2); EOSINOPHILS ABSOLUTE AUTO 0.05 K/mm3 (0.00-0.68); EOSINOPHILS PERCENT AUTO 1 % (0-6); Hematocrit 20.4 % (33.0-51.0); Hemoglobin 6.9 g/dL (11.5-16.0); IMMATURE GRAN ABSOLUTE AUTO 0.07 K/mm3 (0.00-0.10); IMMATURE GRAN PERCENT AUTO 1 % (0-1); LYMPHOCYTES PERCENT AUTO 13 % (21-46); MONOCYTES ABSOLUTE AUTO 0.21 K/mm3 (0.16-1.47); MONOCYTES PERCENT AUTO 4 % (4-13); Mean Corpuscular HGB 31.5 pg (26.0-34.0); Mean Corpuscular HGB Conc 33.8 g/dL (31.5-36.5); Mean Corpuscular Volume 93 fL (80-100); Mean Platelet Volume 9.9 fL (9.1-12.4); NEUTROPHILS ABSOLUTE AUTO 4.82 K/mm3 (1.96-9.15); NEUTROPHILS PERCENT AUTO 81 % (41-73); Platelet Count 142 K/mm3 (150-400); RDW Coefficient Variation 17.2 % (11.7-14.2); RDW Standard Deviation 56.9 fL (35.1-46.3); Red Blood Cell Count 2.19 M/mm3 (3.80-5.20); White Blood Cell Count 5.96 K/mm3 (4.00-11.30)
[2022-10-17 14:57] LABS: BASOPHILS ABSOLUTE AUTO 0.02 K/mm3 (0.00-0.23); BASOPHILS PERCENT AUTO 0 % (0-2); EOSINOPHILS ABSOLUTE AUTO 0.03 K/mm3 (0.00-0.68); EOSINOPHILS PERCENT AUTO 0 % (0-6); Hematocrit 26.9 % (33.0-51.0); Hemoglobin 9.2 g/dL (11.5-16.0); IMMATURE GRAN ABSOLUTE AUTO 0.07 K/mm3 (0.00-0.10); IMMATURE GRAN PERCENT AUTO 1 % (0-1); LYMPHOCYTES ABSOLUTE AUTO 1.13 K/mm3 (0.84-5.20); LYMPHOCYTES PERCENT AUTO 17 % (21-46); MONOCYTES ABSOLUTE AUTO 0.25 K/mm3 (0.16-1.47); MONOCYTES PERCENT AUTO 4 % (4-13); Mean Corpuscular HGB 30.9 pg (26.0-34.0); Mean Corpuscular HGB Conc 34.2 g/dL (31.5-36.5); Mean Corpuscular Volume 90 fL (80-100); Mean Platelet Volume 10.1 fL (9.1-12.4); NEUTROPHILS ABSOLUTE AUTO 5.24 K/mm3 (1.96-9.15); NEUTROPHILS PERCENT AUTO 78 % (41-73); Platelet Count 178 K/mm3 (150-400); RDW Coefficient Variation 16.4 % (11.7-14.2); RDW Standard Deviation 52.1 fL (35.1-46.3); Red Blood Cell Count 2.98 M/mm3 (3.80-5.20); White Blood Cell Count 6.74 K/mm3 (4.00-11.30)
--- NOTE | 2022-10-17 18:00 | NUR ---
10/17/[address] PERRY NOTES FOR BLOOD AND FFP ADMINISTRATION. SEE DR GARNICA'S NOTES FOR BALLOON/CATHETER INSERTION INTO UTERUS, THAT REMAINED IN UTERUS.
[2022-10-17 18:13] LABS: Magnesium, Blood 1.6 mg/dL (1.6-2.4)
[2022-10-17 19:03] LABS: BASOPHILS ABSOLUTE AUTO 0.01 K/mm3 (0.00-0.23); BASOPHILS PERCENT AUTO 0 % (0-2); EOSINOPHILS ABSOLUTE AUTO 0.01 K/mm3 (0.00-0.68); EOSINOPHILS PERCENT AUTO 0 % (0-6); Hematocrit 23.6 % (33.0-51.0); IMMATURE GRAN ABSOLUTE AUTO 0.09 K/mm3 (0.00-0.10); IMMATURE GRAN PERCENT AUTO 1 % (0-1); LYMPHOCYTES ABSOLUTE AUTO 0.68 K/mm3 (0.84-5.20); LYMPHOCYTES PERCENT AUTO 9 % (21-46); MONOCYTES ABSOLUTE AUTO 0.19 K/mm3 (0.16-1.47); MONOCYTES PERCENT AUTO 3 % (4-13); Mean Corpuscular HGB 31.1 pg (26.0-34.0); Mean Corpuscular HGB Conc 33.9 g/dL (31.5-36.5); Mean Corpuscular Volume 92 fL (80-100); Mean Platelet Volume 10.1 fL (9.1-12.4); NEUTROPHILS ABSOLUTE AUTO 6.33 K/mm3 (1.96-9.15); NEUTROPHILS PERCENT AUTO 87 % (41-73); Platelet Count 118 K/mm3 (150-400); RDW Coefficient Variation 14.6 % (11.7-14.2); RDW Standard Deviation 47.5 fL (35.1-46.3); Red Blood Cell Count 2.57 M/mm3 (3.80-5.20); White Blood Cell Count 7.31 K/mm3 (4.00-11.30)
--- NOTE | 2022-10-17 19:10 | NUR ---
PATIENT ARRIVED TO ICU 10 VIA GURNEY FROM OR, TRANSFER TO BED WITH SLIDER SHEET AND PLACED ON ICU MONITORS. PATIENT A&O X3. INTRAUTERINE HOLCOMB IN PLACE WITH BALLOON WITH 30 CC FULL PER DOCTOR NAHUN. SMALL AMT OF BRIGHT RED BLOOD DRAINING INTO BAG VIA GRAVITY. HOLCOMB IN PLACE DRAINING CLEAR YELLOW URINE. PERIAREA AND CATH CARE DONE. ABD SOFT. PATIENT C/O SLIGHT ABD CRAMPING. DOCTOR NESHA AND DOCTOR GARNICA AT BEDSIDE. MONITOR SHOWING SINUS TACH. LUNG SOUNDS CLEAR ON RA. BP SOFT. PATIENTS JOSE AT BEDSIDE PROVIDING GOOD SUPPORT, PATIENT TEARFUL AT TIMES.
[2022-10-17 19:18] LABS: International Normalized Ratio 1.08; Prothrombin Time Results 11.3 Sec (9.7-11.5)
[2022-10-17 19:22] LABS: Magnesium, Blood 1.5 mg/dL (1.6-2.4)
[2022-10-17 19:23] LABS: Calcium, Blood 7.8 mg/dL (8.5-10.1)
--- NOTE | 2022-10-17 19:41 | NUR ---
PT CAME TO PACU AT 175 A/O ON A GURNEY WITH OR STAFF AND DR ANDREWS PRESENT . DR PERRY STAYED AT BEDSIDE UNTIL PT WAS TRANSFERRED TO ICU at 1909. RAMSES RN CAME TO PACU AT 1814 AND STARTED UNIT OF PRBC PER DR PERRY REQUEST AT 1817. PT TOLERATED THIS WITH NO PROBLEM . YONAS MAXWELL WAS ON PT AND SHE TOLD ME SHE WAS COMFORTABLE . LAB WAS HERE TO DRAW BLOOD AND RAMSES LINTON ASSISTED. PT REMAINED A/O DURING TIME IN PACU . HOLCOMB BAG WITH URINE WAS EMPTIED OF 2000 CLEAR URINE AT D/C FROM PACU FOLEYBAG FOR UTERUS HAD SCANT RED DRNG WHEN SHE ARRIVED AND SAME WHEN TRANSFERRED TO ICU.
[2022-10-17 22:26] LABS: Hematocrit 24.9 % (33.0-51.0); Hemoglobin 8.6 g/dL (11.5-16.0)
[2022-10-17 22:36] LABS: Source, Urine Foley catheter
[2022-10-17 23:31] LABS: Appearance, Urine Clear (Clear); Bilirubin, Urine Neg (Neg); Blood, Urine Neg (Neg); Color, Urine Yellow (P-Yellow); Glucose Qualitative, Urine Neg (Neg); Ketones, Urine Neg (Neg); Leukocyte Esterase, Urine Neg (Neg); Nitrite, Urine Neg (Neg); Protein, Urine Neg (Neg); Urobilinogen, Urine NORM (Normal)
[2022-10-18] VITALS (60 sets, daily range): BP systolic 82–132; BP diastolic 45–87
--- NOTE | 2022-10-18 01:00 | NUR ---
PATIENT RESTING QUIETLY, AWAKENS TO SLIGHT STIMULI. C/O SLIGHT MOON. DA PO WITHOUT DIFFICULTY. NEXT DOSE OF TYLENOL 0200. HEART RATE NOW 80-90'S BP STABLE. NO FURTHER DRAINAGE SEEN IN INTRAUTERINE HOLCOMB. GOOD URINE OUTPUT. H&H STABLE
[2022-10-18 05:55] LABS: BASOPHILS ABSOLUTE AUTO 0.01 K/mm3 (0.00-0.23); BASOPHILS PERCENT AUTO 0 % (0-2); EOSINOPHILS PERCENT AUTO 0 % (0-6); Hemoglobin 7.8 g/dL (11.5-16.0); IMMATURE GRAN ABSOLUTE AUTO 0.13 K/mm3 (0.00-0.10); IMMATURE GRAN PERCENT AUTO 1 % (0-1); LYMPHOCYTES ABSOLUTE AUTO 0.91 K/mm3 (0.84-5.20); LYMPHOCYTES PERCENT AUTO 10 % (21-46); MONOCYTES ABSOLUTE AUTO 0.26 K/mm3 (0.16-1.47); MONOCYTES PERCENT AUTO 3 % (4-13); Mean Corpuscular HGB 30.8 pg (26.0-34.0); Mean Corpuscular HGB Conc 33.9 g/dL (31.5-36.5); Mean Corpuscular Volume 91 fL (80-100); Mean Platelet Volume 10.4 fL (9.1-12.4); NEUTROPHILS ABSOLUTE AUTO 7.71 K/mm3 (1.96-9.15); NEUTROPHILS PERCENT AUTO 86 % (41-73); Platelet Count 132 K/mm3 (150-400); RDW Coefficient Variation 15.2 % (11.7-14.2); RDW Standard Deviation 48.8 fL (35.1-46.3); Red Blood Cell Count 2.53 M/mm3 (3.80-5.20); White Blood Cell Count 9.02 K/mm3 (4.00-11.30)
--- NOTE | 2022-10-18 06:02 | NUR ---
PATIENT SLEEPING OFF AND ON T/O NIGHT. C/O MOON WITH SOME RELIEF WITH TYLENOL AND REPOSITIONING IN BED. LOW ABD CRAMPING COMES AND GOES. ABD REMAINS SOFT. TYLENOL PO GIVEN Q6 T/O NIGHT. INTRAUTERINE HOLCOMB IN PLACE DRAINING TOTAL OF 20 CC RED DRAINAGE T/O NIGHT. HEART RATE NOW IN THE 80-90'S. PATIENTS JOSE REMAINS AT BEDSIDE PROVIDING GOOD SUPPORT. AWAITING AM LABS
[2022-10-18 06:23] LABS: Bun/Creatinine Ratio 9.7 (12.0-20.0); Calcium, Blood 7.4 mg/dL (8.5-10.1); Creatinine, Blood 0.62 mg/dL (0.40-1.00); Magnesium, Blood 1.6 mg/dL (1.6-2.4); Phosphorus, Blood 4.4 mg/dL (2.5-4.9); Potassium, Blood 4.2 mmol/L (3.5-5.5)
--- NOTE | 2022-10-18 06:41 | NUR ---
DOCTOR NESHA NOTIFIED OF AM LABS AND GIVEN UPDATE ON PATIENT. PLAN TO CONTINUE TO MONITOR FOR ACTIVE BLEEDING.
[2022-10-18 10:45] LABS: Hematocrit 20.1 % (33.0-51.0); Hemoglobin 7.2 g/dL (11.5-16.0)
--- NOTE | 2022-10-18 11:08 | NUR ---
CARE OF PT ASSUMED AT 0700. PT AWAKE IN BED W AT BEDSIDE. PT DENIES C/O PAIN. ABD SOFT. HOLCOMB TO UTERUS W SCANT BLOOD TO HOLCOMB CATH LINE; NO NEW BLOOD IN BAG. SCANT SS VAGINAL DISCHARGE. PT HYPOTENSIVE W MAP >65, TACHY W RATE 100-120 DEPENDING ON MOVEMENT. LR AT 150CC/HR X 2LITER, ON 2ND LITER. DR JEFFRIES IN THIS AM TO SEE PT. H&H DRAWN AT 1000, RESULTS GIVEN TO DR JEFFRIES AND DR TONG. T/O RECIEVED FROM DR TONG TO REMOVE 5CC/HR FROM HOLCOMB CATH TO UTERUS. PT HAS BEEN TOLERATING THIS WITHOUT ANY BLEEDING. ANCEF STARTED. FBP CALLED TO ASK FOR BEREAVEMENT CARE; BEREAVEMENT RN WILL COME TO VISIT PT TODAY.
--- NOTE | 2022-10-18 11:57 | NUR ---
20CC REMOVED FROM CATHETER IN UTERUS, NO BLEEDING NOTED. NO NEW VAGINAL DISCHARGE, NO COMPLAINTS OF PAIN/CRAMPING. NO CHANGE IN VITAL SIGNS. LR STOPPED PER DR JEFFRIES, PT TOLERATING PO FLUIDS.
--- NOTE | 2022-10-18 12:31 | NUR ---
PT C/O FEELING HER HEART "BEAT FASTER", SHE WAS TRYING TO FALL ASLEEP. NO NEW BLEEDING PRESENT; NO NEW BLOOD TO CATHETER TUBING, NO VAGINAL BLEEDING NOTED. HEART RATE 110-118, BP REMAINS HYPOTENSIVE W MAP >65.
--- NOTE | 2022-10-18 14:55 | NUR ---
DR TONG IN TO SEE PT AND SPENT ABOUT 35+ MIN W PT AND PT'S . WATER; 30CC REMOVED FROM CATHETER OVER 6HRS ORDERED. PT HAS HAD NO BLEEDING. POWERGLIDE PLACED TO JUAN MIGUEL; PT IS DIFFICULT TO DRAW LABS ON AND REQUIRES MULTIPLE STICKS.
[2022-10-18 16:23] LABS: Hematocrit 20.3 % (33.0-51.0); Hemoglobin 7.1 g/dL (11.5-16.0)
--- NOTE | 2022-10-18 17:23 | NUR ---
CATHETER FROM UTERUS REMOVED AT 1615 W/O ISSUES, PT DA WELL; SCANT AMT OF BLOOD TO TIP OF CATHETER. H&H STABLE. DR TONG CALLED AND GIVEN UPDATE. ORDERS RECEIVED TO AILYN HOLCOMB, START REGULAR DIET, TRANSFER TO SURGICAL FLOOR W DAMIEN, AILYN CAMACHO, UP AD KELSEY AFTER CHECKING ORTHOSTAIC PRESSURES. AICHA ROBERTSON'D W/O ISSUES, PT DA WELL. DIET ORDERED.
--- NOTE | 2022-10-18 19:00 | NUR ---
ASSUMED CARE CARE WAS ASSUMED OF SHAGGY AT 1900, REPORT GIVEN BY SHEILA LINTON. PT LAYING IN BED UPON ENTRY INTO ROOM, FAMILY AT BEDSIDE. PT A/O X4, ABLE TO MAKE NEEDS KNOWN. PT'S ON ROOM AIR, WHEN 02 SATS SPOT CHECKED SPO2 >95%. PT ON CONTINUOUS CARDIAC MONITORING, SINUS TACH REFLECTED ON MONITOR. BP SOFT, SBP 90s. MAP >65. PT'S POWERGLIDE AND PIV SL.
[2022-10-19] VITALS (40 sets, daily range): BP systolic 90–118; BP diastolic 55–96
[2022-10-19 04:19] LABS: BASOPHILS ABSOLUTE AUTO 0.01 K/mm3 (0.00-0.23); BASOPHILS PERCENT AUTO 0 % (0-2); EOSINOPHILS ABSOLUTE AUTO 0.09 K/mm3 (0.00-0.68); EOSINOPHILS PERCENT AUTO 2 % (0-6); Hematocrit 19.5 % (33.0-51.0); Hemoglobin 6.7 g/dL (11.5-16.0); IMMATURE GRAN ABSOLUTE AUTO 0.11 K/mm3 (0.00-0.10); IMMATURE GRAN PERCENT AUTO 2 % (0-1); LYMPHOCYTES ABSOLUTE AUTO 1.39 K/mm3 (0.84-5.20); LYMPHOCYTES PERCENT AUTO 26 % (21-46); MONOCYTES ABSOLUTE AUTO 0.25 K/mm3 (0.16-1.47); MONOCYTES PERCENT AUTO 5 % (4-13); Mean Corpuscular HGB 30.9 pg (26.0-34.0); Mean Corpuscular HGB Conc 34.4 g/dL (31.5-36.5); Mean Corpuscular Volume 90 fL (80-100); NEUTROPHILS ABSOLUTE AUTO 3.52 K/mm3 (1.96-9.15); NEUTROPHILS PERCENT AUTO 66 % (41-73); Platelet Count 123 K/mm3 (150-400); RDW Coefficient Variation 15.9 % (11.7-14.2); RDW Standard Deviation 49.9 fL (35.1-46.3); Red Blood Cell Count 2.17 M/mm3 (3.80-5.20); White Blood Cell Count 5.37 K/mm3 (4.00-11.30)
--- NOTE | 2022-10-19 06:12 | NUR ---
SHIFT SUMMARY SHAGGY CONTINUES TO BE A/O X4. PT HAS BEEN ABLE TO MAKE NEEDS KNOWN THIS SHIFT AND USED CALL LIGHT APPROPRIATELY. PT WAS ABLE TO AMBULATE TO BATHROOM WITH SBA THROUGHOUT THE SHIFT. PT HAD SMALL AMOUNT OF SPOTTING ON PERINEAL PADS THROUGHOUT THE SHIFT. RECENT HGB VALUE CAME BACK LOW. PER TELEPHONE ORDERS FROM , 1 UNIT OF PRBCs CURRENTLY TRANSFUSING. PT REMAINS ON RA, WHEN O2 SATS SPOT CHECKED, >95%. CONTINUOUS CARDIAC MONITORING REFLECTED SINUS TACH AT THE BEGINNING OF THE SHIFT AND NOW NSR. BP HAS BEEN HYPOTENSIVE THIS SHIFT, SBP 90s-100s. PT COMPLAINED OF SLIGHT ABDOMINAL CRAMPING DURING THE SHIFT, BUT STATED IT WENT AWAY WITH MOVEMENT. PT AFEBRILE THROUGHOUT THIS SHIFT. WILL CONTINUE TO MONITOR UNTIL CARE IS TRANSITIONED TO DAY SHIFT.
--- NOTE | 2022-10-19 07:49 | NUR ---
CARE OF PT ASSUMED AT 0700. PT SLEEPING, AWAKENS TO VOICE. PT STATES SHE FEELS VERY TIRED TODAY. C/O HEADACHE AND SOME NECK SORENESS /10, TYLENOL GIVEN. DENIES ABD/LOWER ABD PAIN OR CRAMPING. SCANT AMT OF PINK VAGINAL DISCHARGE TO PAD. ONE UNIT PRBC'S INFUSING, PT DA WELL. SBA TO TOILET W 700CC URINE OUTPUT. PT NOW UP IN CHAIR EATING BREAKFAST, AT BEDSIDE.
--- NOTE | 2022-10-19 08:49 | NUR ---
TRANSFUSION COMPLETE, PT TOLERATED WELL W/O ANY ADVERSE REACTIONS.
--- NOTE | 2022-10-19 10:09 | NUR ---
DR PRUETT IN TO SEE PT. PT TO MRI AT 1008.
--- NOTE | 2022-10-19 11:35 | NUR ---
ARRIVAL TO UNIT PT ARRIVED TO UNIT VIA W/C. ALERT, ORIENTED, AND PLEASANT--BUT TEARFUL AND EMOTIONAL. SUPPORT PRN. PT REPORTS MILD CRAMPING AND MINIMAL VAGINAL BLEEDING AT THIS TIME. ABLE TO STAND INDEP TO GET INTO BED. IV IRON INFUSING PER ORDERS. ICE WATER GIVEN TO PT. ORIENTED TO ROOM AND CALL LIGHT.
[2022-10-19 16:55] LABS: Hematocrit 26.1 % (33.0-51.0); Hemoglobin 8.8 g/dL (11.5-16.0); Mean Corpuscular HGB 30.1 pg (26.0-34.0); Mean Corpuscular HGB Conc 33.7 g/dL (31.5-36.5); Mean Corpuscular Volume 89 fL (80-100); Mean Platelet Volume 9.6 fL (9.1-12.4); Platelet Count 150 K/mm3 (150-400); RDW Standard Deviation 49.7 fL (35.1-46.3); Red Blood Cell Count 2.92 M/mm3 (3.80-5.20); White Blood Cell Count 5.86 K/mm3 (4.00-11.30)
--- NOTE | 2022-10-19 17:01 | NUR ---
SHIFT SUMMARY NO ACUTE CHANGES SINCE ARRIVING FROM ICU. ALERT, ORIENTED, AND INDEP. REPORTING MILD ABD CRAMPING, BUT DECLINES NEEDS FOR PAIN MEDICATIONS. REPORTS SCANT VAG BLEEDING. VOIDING SPONTANEOUSLY. DA PO. CAN BE TEARFUL AND EMOTIONAL AT TIMES--SUPPORT PRN. FAMILY AT BEDSIDE. USES CALL LIGHT APPROPRIATELY.
[2022-10-20 00:02] VITALS: BP 110/59
--- NOTE | 2022-10-20 04:39 | NUR ---
SHIFT SUMMARY POD 3 D&C. NO ACUTE CHANGES OVERNIGHT. VS STABLE, BIOX ON OVERNIGHT. A&O x4, INDEPENDENT IN ROOM. PT STATES LIDA PAD CHANGED ONCE THROUGHOUT NIGHT FOR "CLEANLINESS" BUT DENIES BLOOD ON PAD/ IN URINE. PT SLEPT WELL THROUGHT THE NIGHT, DENIES PAIN. CALL LIGHT WITHIN REACH, BED IN LOWEST POSITION, WILL REPORT TO DAY RN.
[2022-10-20 04:41] VITALS: BP 106/58
[2022-10-20 04:50] LABS: Hematocrit 24.6 % (33.0-51.0); Hemoglobin 8.2 g/dL (11.5-16.0); Mean Corpuscular HGB 30.6 pg (26.0-34.0); Mean Corpuscular HGB Conc 33.3 g/dL (31.5-36.5); Mean Corpuscular Volume 92 fL (80-100); Mean Platelet Volume 9.9 fL (9.1-12.4); Platelet Count 141 K/mm3 (150-400); RDW Coefficient Variation 16.2 % (11.7-14.2); RDW Standard Deviation 51.3 fL (35.1-46.3); Red Blood Cell Count 2.68 M/mm3 (3.80-5.20); White Blood Cell Count 5.03 K/mm3 (4.00-11.30)
[2022-10-20 05:15] LABS: Percent Saturation 27.6 % (15.0-50.0)
--- NOTE | 2022-10-20 07:24 | NUR ---
ASSUMED CARE: PT RESTING QUIETLY AT THIS TIME. NO ACUTE NEEDS OR CONCERNS AT PRESENT
[2022-10-20 07:45] VITALS: BP 130/64
[2022-10-20 11:12] LABS: Hematocrit 26.1 % (33.0-51.0); Hemoglobin 8.7 g/dL (11.5-16.0)
--- NOTE | 2022-10-20 12:00 | NUR ---
DISCHARGE: CALL TO DR GARNICA AFTER H/H RESULT. GAVE DC INSTRUCTIONS OVER THE PHONE AND PROVIDED THESE INSTRUCTIONS TO PT WELL. PT VERBALIZED UNDERSTANDING OF MEDICATIONS, FOLLOW UP APPOINTMENTS AND MONITORING FOR BLEEDING. ESCORTED OUT VIA WHEEL CHAIR BY STAFF. DENIED FURTHER NEEDS OR CONCERNS.
== END 2022-10-20 12:06 | disposition home or self-care (01) | DRG 770 ==
LOC: ER 07:45 → SURS 07:46 → ICUE 18:18 → SURS 18:18 → ICUE 19:10 → SURS 10-19 11:39
PROVIDERS: Internal Medicine Critical Care Medicine; Obstetrics & Gynecology; Physician Assistant; ADMIT Obstetrics & Gynecology
PROC: 30233N1 Transfusion of Nonautologous Red Blood Cells into Peripheral Vein, Percutaneous Approach (ICD-10-PCS; 2022-10-17)
PROC: 30233K1 Transfusion of Nonautologous Frozen Plasma into Peripheral Vein, Percutaneous Approach (ICD-10-PCS; 2022-10-17)
PROC: 10D17ZZ Extraction of Products of Conception, Retained, Via Natural or Artificial Opening (ICD-10-PCS; principal; 2022-10-17 16:45)
DX: O03.1 Delayed or excessive hemorrhage following incomplete spontaneous abortion (principal); D62 Acute posthemorrhagic anemia; N88.3 Incompetence of cervix uteri; D25.9 Leiomyoma of uterus, unspecified; Z90.89 Acquired absence of other organs; Z98.890 Other specified postprocedural states; Z88.2 Allergy status to sulfonamides; Z88.1 Allergy status to other antibiotic agents; Z88.8 Allergy status to other drugs, medicaments and biological substances; Z91.018 Allergy to other foods; Z79.899 Other long term (current) drug therapy
CPT/HCPCS: 36415; 36430; 72197; 76856; 76857; 76998; 80047; 80048; 80053; 81003; 82310; 82728; 83540; 83550; 83605; 83735; 84100; 84702; 85014; 85018; 85025; 85027; 85049; 85384; 85610; 85730; 86850; 86900; 86901; 86923; 88305; 94762; 96361; 96372-59; 96374; 96375; 99285-25; A9270; A9579; C1751; J0330; J0690; J1100; J1885; J2060; J2210; J2250; J2371; J2405; J2704; J2916; J3010; J7030; J7050; J7120; P9016; P9059

== ENCOUNTER 2022-10-22 22:05 | Inpatient (IN) | payer OTHER ==
[~2022-10-22] VITALS: Ht 167.6 cm; Wt 85.5 kg
[2022-10-22 22:47] LABS: BASOPHILS ABSOLUTE AUTO 0.03 K/mm3 (0.00-0.23); BASOPHILS PERCENT AUTO 1 % (0-2); EOSINOPHILS ABSOLUTE AUTO 0.06 K/mm3 (0.00-0.68); EOSINOPHILS PERCENT AUTO 1 % (0-6); Hematocrit 30.8 % (33.0-51.0); Hemoglobin 10.5 g/dL (11.5-16.0); IMMATURE GRAN ABSOLUTE AUTO 0.06 K/mm3 (0.00-0.10); IMMATURE GRAN PERCENT AUTO 1 % (0-1); LYMPHOCYTES ABSOLUTE AUTO 1.64 K/mm3 (0.84-5.20); LYMPHOCYTES PERCENT AUTO 29 % (21-46); MONOCYTES ABSOLUTE AUTO 0.27 K/mm3 (0.16-1.47); MONOCYTES PERCENT AUTO 5 % (4-13); Mean Corpuscular HGB 31.1 pg (26.0-34.0); Mean Corpuscular HGB Conc 34.1 g/dL (31.5-36.5); Mean Corpuscular Volume 91 fL (80-100); Mean Platelet Volume 9.7 fL (9.1-12.4); NEUTROPHILS ABSOLUTE AUTO 3.61 K/mm3 (1.96-9.15); NEUTROPHILS PERCENT AUTO 64 % (41-73); Platelet Count 197 K/mm3 (150-400); RDW Coefficient Variation 15.7 % (11.7-14.2); RDW Standard Deviation 50.2 fL (35.1-46.3); Red Blood Cell Count 3.38 M/mm3 (3.80-5.20); White Blood Cell Count 5.67 K/mm3 (4.00-11.30)
[2022-10-22 23:05] LABS: Bilirubin, Total 0.3 mg/dL (0.1-1.0); Bun/Creatinine Ratio 21.5 (12.0-20.0); Calcium, Blood 8.4 mg/dL (8.5-10.1); Creatinine, Blood 0.65 mg/dL (0.40-1.00); Potassium, Blood 3.7 mmol/L (3.5-5.5)
[2022-10-22] MEDS ORDERED: MAGNESIUM OXID500 MG (23:12)
[2022-10-22] MEDS ORDERED: UBID10 (23:12)
[2022-10-22] MEDS ORDERED: Vitamin C100 M1 (23:13)
[2022-10-22] MEDS ORDERED: OMEGA-3 + VITA1 EAC2 (23:13)
[2022-10-23] VITALS (31 sets, daily range): BP systolic 69–129; BP diastolic 41–94
--- NOTE | 2022-10-23 03:55 | NUR ---
PT ARRIVED TO ROOM 222 FROM ER. PT A/O X4, VSS, DENIES DIZZINESS. PT REP LOWER ABD CRAMPING, AND LOWER BACK CRAMPING/ACHING. PT ARRIVED W/SATURATED LIDA PAD W/APPX 5-6 CM CLOT PRESENT. PT REP THIS CLOT IS THE LARGEST SINCE BLEEDING STARTED THIS CODY. ABD SOFT, NON TENDER TO PALP. PT HAD APPX 600 ML URINE. URINE CRANBERRY COLORED R/T BLEEDING. PT DENIED PAIN W/VOID, REP RECENT LOOSE STOOL. PT EMOTIONAL, REPORTS FEELING SCARED R/T BLEEDING AGAIN. SUPPORTIVE AT BEDSIDE. SUPPORT PROVIDED. PT NPO. CONTACTED FOR ORDERS, AWAITING CALL BACK.
--- NOTE | 2022-10-23 04:23 | NUR ---
BLEEDING: TOP LIFT SCOURER ALERTED THIS RN PT CALLED REPORTING SHE FELT ANOTHER "GUSH" OF BLEED. DR GARNICA UPDATED THIS RN WAS ALREADY ON PHONE W/MD. DR GARNICA STATED SHE WILL PUT IN ORDERS ADN BE IN TO SEE PT. PT UPDATED, LIDA PAD SATURATED W/DARK PINK/BRIGHT RED BLOOD. PLAN TO AWAIT NEW ORDERS.
[2022-10-23 05:32] LABS: BASOPHILS ABSOLUTE AUTO 0.01 K/mm3 (0.00-0.23); BASOPHILS PERCENT AUTO 0 % (0-2); EOSINOPHILS ABSOLUTE AUTO 0.03 K/mm3 (0.00-0.68); EOSINOPHILS PERCENT AUTO 1 % (0-6); Hematocrit 29.4 % (33.0-51.0); Hemoglobin 9.8 g/dL (11.5-16.0); IMMATURE GRAN ABSOLUTE AUTO 0.08 K/mm3 (0.00-0.10); IMMATURE GRAN PERCENT AUTO 1 % (0-1); LYMPHOCYTES ABSOLUTE AUTO 1.29 K/mm3 (0.84-5.20); LYMPHOCYTES PERCENT AUTO 21 % (21-46); MONOCYTES ABSOLUTE AUTO 0.27 K/mm3 (0.16-1.47); MONOCYTES PERCENT AUTO 5 % (4-13); Mean Corpuscular HGB 30.9 pg (26.0-34.0); Mean Corpuscular HGB Conc 33.3 g/dL (31.5-36.5); Mean Corpuscular Volume 93 fL (80-100); Mean Platelet Volume 10.2 fL (9.1-12.4); NEUTROPHILS ABSOLUTE AUTO 4.37 K/mm3 (1.96-9.15); NEUTROPHILS PERCENT AUTO 72 % (41-73); Platelet Count 181 K/mm3 (150-400); RDW Coefficient Variation 15.8 % (11.7-14.2); RDW Standard Deviation 52.5 fL (35.1-46.3); Red Blood Cell Count 3.17 M/mm3 (3.80-5.20); White Blood Cell Count 6.05 K/mm3 (4.00-11.30)
--- NOTE | 2022-10-23 05:55 | NUR ---
DR GARNICA IN. 14 [place] HOLCOMB PLACED INTO UTERUS. SEVERAL LARGE CLOTS REMOVED BY . PT DA WELL.
[2022-10-23 06:26] LABS: International Normalized Ratio 0.97; Prothrombin Time Results 10.2 Sec (9.7-11.5)
--- NOTE | 2022-10-23 07:33 | NUR ---
PT VITALS HAVE REMAINED STABLE. PT SATURATED (W/LARGE CLOTS) 3 LIDA PADS SINCE ARRIVING TO FLOOR. UTERINE HOLCOMB IN PLACE, PT CONT TO AHVE MOD AMT VAGINAL BLLEEDING. PASSED VERY LARGE CLOT (APPX 600ML) WHEN UP TO RESTROOM. DR GARNICA UPDATED, PLAN FOR IR PROCEDURE HERE VS TX TODAY. PT EMOTIONAL AND ANXIOUS, SUPPORT PROVIDED PRN. SUPPORTIVE AT BEDSIDE. BEDSIDE REPORT GIVEN TO Cornelio LAURENT RN.
--- NOTE | 2022-10-23 11:11 | NUR ---
VAGINAL BLEEDING 1 PAD SATURATED w/ AMBULATION TO BATHROOM. REPORTS IT FEELS LIKE A SMALL PASTRANA & THEN TRICKLING.
[2022-10-23 13:09] LABS: Hematocrit 30.2 % (33.0-51.0)
--- NOTE | 2022-10-23 15:45 | NUR ---
UP TO BATHROOM. OUTPUT FROM VAGINA IS DARK RED. WAS NOT CHARTED URINE IT DOESN'T APPEAR TO BE URINE.
--- NOTE | 2022-10-23 16:30 | NUR ---
TRIP TO BATHROOM/INCREASE IN VAGINAL BLEEDING PT REPORTS FEELING LIKE THERE IS MORE BLOOD IN VAGINAL CAVITY. ASSISTED TO BATHROOM. SATURDATED LARGE PAD & ATTENDS. DR GARNICA CALLED AGAIN. NEW ORDERS RECEIVED & DR GARNICA PLANS TO COME SEE PT.
--- NOTE | 2022-10-23 17:20 | NUR ---
DR GARNICA TO ROOM. CHANGED TO ICU STATUS. LR BOLUS INFUSING. PT's COLOR IS MORE PALE. PT FEELS VERY SCARED & IS FEELING DIZZY AT X's. REMAINS NPO. VAG BLEEDING CONTINUES. MODERATE SIZED CLOTS. DR GARNICA ADJUSTS UTERINE CATH.
--- NOTE | 2022-10-23 17:35 | NUR ---
IR DOCTOR TO ROOM w/ DR GARNICA. REPORT CALLED TO ICU.
[2022-10-23 18:00] LABS: Hematocrit 23.3 % (33.0-51.0); Hemoglobin 7.8 g/dL (11.5-16.0)
--- NOTE | 2022-10-23 18:15 | NUR ---
TRANSFERED TO ICU. INCREASE IN VAGINAL BLEEDING, CLOTTING, & ABD CRAMPING. DR GARNICA IN ROOM.
--- NOTE | 2022-10-23 19:32 | NUR ---
TRANSFER TO ICU / SHIFT SUMMARY: REPORT RECEIVED FROM SHAILA PULIDO. PT ARRIVED TO ICU-16 AT APPROX 1755. ON ARRIVAL, THE PT IS A&O TO ALL, STS FEELING DIZZY & APPEARS QUITE PALE. HYPOTENSION NOTED. LS CLEAR T/O, PT ON RA W/ O2 SATS > 95%. MONITOR SHOWS ST W/ HR 110-120s. PT HAS BEEN NPO ALL DAY R/T POSSIBLY GOING TO OR. DENIES GI COMPLAINTS OTHER THAN HUNGER. VOIDS URINE W/O DIFFICULTY. PADS & DRIFLOW CHUCKS IN PLACE R/T CONTINUOUS VAGINAL HEMMHORAGING W/ LARGE SOFTBALL SIZED CLOTS BEING EXPELLED. SKIN CONDITION OVERALL INTACT, REPOSITIONING LIMITED SLIGHTLY R/T PT's CONDITION & WORSENING BLEEDING WHEN MOVED. Johnny GARNICA & FLYNN HAVE BEEN AT BEDSIDE DURING THIS TIME. ONE UNIT PRBCs INFUSING. AFTER CONSULTING IR FOR POSSIBLE EMBOLIZATION, IT IS DETERMINED THAT RECEIVING A TOTAL HYSTERECTOMY IS THE SAFEST & MOST EFFECTIVE OPTION FOR THIS PT. THE OR TEAM/ ANESTHESIOLOGIST HAVE BEEN CALLED IN BY THE NURSING PROGRAM OR PROJECT ADMINISTRATOR & THE PT HAS BEEN TAKEN TO THE OR AT APPROX 1935. BLOOD TRANSFUSING AT THAT TIME, BP HAS IMPROVED SLIGHTLY. REPORT GIVEN TO SHIALA WHITMAN TO ASSUME CARE.
--- NOTE | 2022-10-23 19:34 | NUR ---
TO OR WITH DOCTOR THORNE AND OR CREW WITH TXA AND PRBC INFUSING
--- NOTE | 2022-10-23 20:24 | NUR ---
10/23/222023 Willa Chen 20G IV STARTED BY [place] AT 1945 IN RIGHT THUMB
[2022-10-23 20:41] LABS: PCO2 Arterial 38.3 mmHg (35-45); PO2 Arterial 204 mmHg (80-100)
[2022-10-23 20:53] LABS: Hematocrit 24.2 % (33.0-51.0); Mean Corpuscular HGB 30.3 pg (26.0-34.0); Mean Corpuscular HGB Conc 33.1 g/dL (31.5-36.5); Mean Corpuscular Volume 92 fL (80-100); Mean Platelet Volume 9.7 fL (9.1-12.4); Platelet Count 234 K/mm3 (150-400); RDW Coefficient Variation 15.8 % (11.7-14.2); RDW Standard Deviation 50.8 fL (35.1-46.3); Red Blood Cell Count 2.64 M/mm3 (3.80-5.20); White Blood Cell Count 17.12 K/mm3 (4.00-11.30)
[2022-10-23 21:14] LABS: International Normalized Ratio 1.19; Prothrombin Time Results 12.4 Sec (9.7-11.5)
--- NOTE | 2022-10-23 21:20 | NUR ---
PATIENT RETURN FROM OR, AWAKE ON NRB MASK, C/O ABD CRAMPING DILAUDID GIVEN BY ANESTHESIA ON ARRIVAL. ARTLINE IN PLACE TO RIGHT WRIST, CORRELATING WELL WITH NIBP, REMOVE ARTLINE IN AM PER DOCTOR THORNE. ABD SOFT WITH DRESSING CD&I, NO VAGINAL DRAINAGE. PATIENT PLACED BACK ON ICU MONITORS AT BEDSIDE. DOCTOR THORNE, AND DOCTOR GARNICA BOTH PLACING NEW ORDERS
[2022-10-24] VITALS (20 sets, daily range): BP systolic 89–114; BP diastolic 44–69
[2022-10-24 04:14] LABS: BASOPHILS ABSOLUTE AUTO 0.01 K/mm3 (0.00-0.23); BASOPHILS PERCENT AUTO 0 % (0-2); EOSINOPHILS PERCENT AUTO 0 % (0-6); Hematocrit 22.6 % (33.0-51.0); Hemoglobin 7.5 g/dL (11.5-16.0); IMMATURE GRAN ABSOLUTE AUTO 0.12 K/mm3 (0.00-0.10); IMMATURE GRAN PERCENT AUTO 1 % (0-1); LYMPHOCYTES ABSOLUTE AUTO 0.71 K/mm3 (0.84-5.20); LYMPHOCYTES PERCENT AUTO 6 % (21-46); MONOCYTES ABSOLUTE AUTO 0.27 K/mm3 (0.16-1.47); MONOCYTES PERCENT AUTO 2 % (4-13); Mean Corpuscular HGB 29.9 pg (26.0-34.0); Mean Corpuscular HGB Conc 33.2 g/dL (31.5-36.5); Mean Corpuscular Volume 90 fL (80-100); Mean Platelet Volume 9.8 fL (9.1-12.4); NEUTROPHILS PERCENT AUTO 91 % (41-73); Platelet Count 162 K/mm3 (150-400); RDW Standard Deviation 54.9 fL (35.1-46.3); Red Blood Cell Count 2.51 M/mm3 (3.80-5.20); White Blood Cell Count 13.01 K/mm3 (4.00-11.30)
[2022-10-24 05:10] LABS: International Normalized Ratio 1.04; Prothrombin Time Results 10.9 Sec (9.7-11.5)
--- NOTE | 2022-10-24 05:38 | NUR ---
SUMMARY POST OP ABD CRAMPING BECOMING BETTER CONTROLLED WITH PO OXYCONTIN AND TORADOL. ABD REMAINS SOFT WITH DRESSING CD&I. NO VAGINAL DRAINAGE SEEN T/O NIGHT. ART LINE REMAINS IN PLACE WITH GOOD PLETH, HYPOTENSION CONTINUES WITH MAP 60-67. NO C/O DIZZINESS OR FEELING LIGHTHEADED. HAS NOT REPOSITIONED MUCH IN BED WHILE SLEEPING. HOLCOMB REMAINS IN PLACE DRAINING YELLOW URINE. DA PO WELL, NO C/O NAUSEA.
--- NOTE | 2022-10-24 06:39 | NUR ---
DOCTOR NAHUN GIVEN UP DATE, PLAN ON TRANSFUSE 1 UNIT PRBC THIS MORNING
--- NOTE | 2022-10-24 09:00 | NUR ---
ASSUMED CARE / DR GARNICA: REPORT RECEIVED FROM ANTONETTE Brown RN. ASSUMED CARE OF THIS PT AT APPROX 0700. ON ASSESSMENT, THE PT IS RESTING QUIETLY. SHE AWAKENS EASILY TO VERBAL STIMULUS & IS ORIENTED TO ALL AT THAT TIME. SHE STS GENERALIZED CRAMPING/ ACHING OF HER ABDOMEN WHICH IS IMPROVED SIGNIFICANTLY S/P HYSTERECTOMY. LS CLEAR T/O, PT ON RA W/ O2 SATS > 95%. MONITOR SHOWS SR W/ HR 70-80s, BP STABLE. A-LINE IN PLACE TO RIGHT RADIAL ARTERY. WRIST IMMBOLIZER IN PLACE, BP READING CORRELATES W/ NIBPs TAKEN EVERY HOUR. PT STS HAVING LITTLE APPETITE, WILL TRY TO CONTINUE EATING, DENIES NAUSEA. HOLCOMB IN PLACE POST-OPERATIVELY, ORDERS TO REMOVE ONCE PT IS AMBULATORY W/ GOAL TO BE OOB THIS AFTERNOON. SKIN CONDITION OVERALL INTACT, INCISION TO LOWER ABDOMEN W/ DRESSING CDI. SURROUNDING TISSUE SHOWING NO SIGNS OF IRRITATION W/ NO REDNESS OR WARMTH NOTED. Q2H REPOSITIONING TO MAINTAIN SKIN INTEGRITY. PROVIDER AT BEDSIDE THIS AM TO EVAL PT. SHE IS PLEASED W/ HER PROGRESS & FEELS THAT IF HER BP REMAINS STABLE & SHE IS ABLE TO TOLERATE SITTING UP IN THE CHAIR THIS AFTERNOON, THAT SHE MAY BE ABLE TO TRANSFER OUT OF THE ICU. ORDERS TO RECHECK CBC 4 HRS AFTER CURRENT UNIT PRBCs HAS COMPLETED INFUSING. OKAY TO DISCONTINUE IVFs ONCE PT IS TOLERATING PO INTAKE OF FLUIDS WELL. NO OTHER CHANGES AT THIS TIME. WILL CONTINUE TO MONITOR & UPDATE NEEDED.
[2022-10-24 16:21] LABS: BASOPHILS ABSOLUTE AUTO 0.01 K/mm3 (0.00-0.23); BASOPHILS PERCENT AUTO 0 % (0-2); EOSINOPHILS ABSOLUTE AUTO 0.05 K/mm3 (0.00-0.68); EOSINOPHILS PERCENT AUTO 1 % (0-6); Hematocrit 22.4 % (33.0-51.0); Hemoglobin 7.5 g/dL (11.5-16.0); IMMATURE GRAN ABSOLUTE AUTO 0.08 K/mm3 (0.00-0.10); IMMATURE GRAN PERCENT AUTO 1 % (0-1); LYMPHOCYTES ABSOLUTE AUTO 1.65 K/mm3 (0.84-5.20); LYMPHOCYTES PERCENT AUTO 19 % (21-46); MONOCYTES ABSOLUTE AUTO 0.47 K/mm3 (0.16-1.47); MONOCYTES PERCENT AUTO 5 % (4-13); Mean Corpuscular HGB 29.4 pg (26.0-34.0); Mean Corpuscular HGB Conc 33.5 g/dL (31.5-36.5); Mean Corpuscular Volume 88 fL (80-100); NEUTROPHILS ABSOLUTE AUTO 6.54 K/mm3 (1.96-9.15); NEUTROPHILS PERCENT AUTO 74 % (41-73); Platelet Count 146 K/mm3 (150-400); RDW Coefficient Variation 17.6 % (11.7-14.2); RDW Standard Deviation 55.2 fL (35.1-46.3); Red Blood Cell Count 2.55 M/mm3 (3.80-5.20)
--- NOTE | 2022-10-24 18:15 | NUR ---
DR GARNICA / SHIFT SUMMARY: PROVIDER AT BEDSIDE TO EVAL PT THIS AM WHO IS CURRENTLY SITTING UP IN RECLINER, DENIES DIZZINESS OR LIGHTHEADEDNESS. VSS. SHE STS THE PT IS OKAY TO BE SURGICAL STATUS AT THIS TIME. WOULD LIKE ALL PIVs ASIDE FROM POWERGLIDE TO BE REMOVED FOR PT COMFORT. HOLCOMB ALSO TO BE DISCONTINUED ONCE THE PT FINISHES DINNER THIS EVENING. SHE IS TAKING ADEQUATE PO FLUIDS IN & IVFs DISCONTINUED. PROVIDER ESTIMATES THAT THE PT WILL BE ABLE TO DISCHARGE HOME ON SUNDAY AT THE SOONEST. NO ACUTE CHANGES SINCE PRIOR UPDATES. PT REMAINS A&O, PLEASANT & COOPERATIVE. SHE DOES BECOME EMOTIONAL AT TIMES DISCUSSING THE EVENTS THAT HAVE OCCURED LEADING TO HER HYSTERECTOMY BUT IS OVERALL OPTIMISTIC FOR THE FUTURE. LS CLEAR T/O, PT ON RA W/ O2 SATS > 95%. MONITOR SHOWS SR W/ HR 80-90s, SBP 90s W/ MAP > 65. PT IS TOLERATING INCREASING AMNTS PO INTAKE, STS FEELING SOME "GAS BUBBLES" AT TIMES. HOLCOMB PATENT/ DRAINING CLEAR YELLOW URINE, WILL DISCONTINUE PER ORDERS. SKIN CONDITION OVERALL INTACT, SURGICAL INCISION TO LOWER ABD W/ DRESSING CDI. SMALL AMNT DRAINAGE NOTED UNDER DRESSING, PROVIDER STS OKAY TO CHANGE DRESSING IN AM ONCE THE PT IS MORE AMBULATORY. WILL CONTINUE TO MONITOR & REPORT OFF TO ONCOMING RN.
--- NOTE | 2022-10-24 19:30 | NUR ---
PATIENT UP IN CHAIR. C/O PAIN TO PERIAREA AND BUTTOCKS. TRANSFER TO BED WITH STANDBY ASSISTANCE. PATIENT NOW SURG NO TELE STATUS, ICU MONITORS REMOVED. ABD SOFT DRESSING TO LOW ABD WITH SMALL AMT OF SHADOWING IN DRESSING. GENERALIZED 1+ EDEMA. PATIENT VERBALIZED RELIEF OF BUTTOCK PAIN AFTER GETTING IN BED. MEDICATED WITH ROXICODONE FOR ABD PAIN AND SIMETHICONE FOR C/O GAS.
--- NOTE | 2022-10-24 21:30 | NUR ---
PATIENT UP TO BSC PASSING YELLOW URINE WITH SMALL AMT OF BRIGHT RED DRAINAGE ON PERIPAD AND IN COMMODE. C/O INCREASED PAIN TO LOW ABD WITH GETTING UP TO BSC. MEDICATED WITH SCHEDULED TYLENOL.
--- NOTE | 2022-10-24 22:01 | NUR ---
REPORT CALLED TO LYNETTE LINTON, PATIENT TRANSFER TO 231 VIA W/C. ASSISTING WITH MOVING PERSONAL BELONGINGS
--- NOTE | 2022-10-24 22:35 | NUR ---
PT TX TO ROOM 231 FROM ICU 16. PT ALERT, VSS, LUNGS CLEAR T/O. PT AMB TO BATHROOM W/SBA, DENIED DIZZINESS WHEN UP. PT VOIDED 200ML LIGHT YELLOW URINE, DENIED PAIN W/VOID. LIDA PAD W/SMALL AMT DARK PINK/RED SPOTTING, PAD CHANGED PER PT REQ. ABD SOFT TO PALP, PT REP PAIN ACCROSS INCISION. DRESSING W/SCANT SS SHADOWING. KPAD PROVIDED FOR COMFORT, ICE PACK PROVIDED FOR LIDA AREA. PT REP PAIN 4/10 AFTER TX, IS DECLINING PAIN MEDS AT THIS TIME. PT EMOTIONAL, SUPPORT PROVIDED, SUPPORTIVE AT BEDSIDE.
--- NOTE | 2022-10-25 00:37 | NUR ---
LIDA PAD ASSESSED PER PT REQ. APPX 2CM X 1CM SPOT OF SS DRNG UNCHANGED FROM PREV ASSESSMENT.
[2022-10-25 03:25] VITALS: BP 97/61
--- NOTE | 2022-10-25 03:32 | NUR ---
PT UP TO BATHROOM, VOIDED 400ML YELLOW URINE. LIDA PAD CHANGED PER PT REQ. PAD HAD APPX 4CM X 1CM PINK/RED SPOTTING. PT REP SCANT BLOOD NOTED WHEN WIPING.
[2022-10-25 05:22] LABS: BASOPHILS ABSOLUTE AUTO 0.02 K/mm3 (0.00-0.23); BASOPHILS PERCENT AUTO 0 % (0-2); EOSINOPHILS ABSOLUTE AUTO 0.06 K/mm3 (0.00-0.68); EOSINOPHILS PERCENT AUTO 1 % (0-6); Hematocrit 20.5 % (33.0-51.0); Hemoglobin 6.7 g/dL (11.5-16.0); IMMATURE GRAN ABSOLUTE AUTO 0.05 K/mm3 (0.00-0.10); IMMATURE GRAN PERCENT AUTO 1 % (0-1); LYMPHOCYTES ABSOLUTE AUTO 1.61 K/mm3 (0.84-5.20); LYMPHOCYTES PERCENT AUTO 31 % (21-46); MONOCYTES ABSOLUTE AUTO 0.25 K/mm3 (0.16-1.47); MONOCYTES PERCENT AUTO 5 % (4-13); Mean Corpuscular HGB 29.5 pg (26.0-34.0); Mean Corpuscular HGB Conc 32.7 g/dL (31.5-36.5); Mean Corpuscular Volume 90 fL (80-100); NEUTROPHILS ABSOLUTE AUTO 3.13 K/mm3 (1.96-9.15); NEUTROPHILS PERCENT AUTO 61 % (41-73); Platelet Count 111 K/mm3 (150-400); RDW Coefficient Variation 17.7 % (11.7-14.2); RDW Standard Deviation 57.2 fL (35.1-46.3); Red Blood Cell Count 2.27 M/mm3 (3.80-5.20); White Blood Cell Count 5.12 K/mm3 (4.00-11.30)
[2022-10-25 05:41] LABS: Magnesium, Blood 1.8 mg/dL (1.6-2.4)
--- NOTE | 2022-10-25 06:42 | NUR ---
POD 2 S/P OPEN HYSTER. PT VSS SINCE ARRIVING TO FLOOR. DRESSING W/SCANT SS SHADOWING, ABD SOFT TO PALP. PT HAVING SMALL AMT VAGINAL BLEEDING, LIDA PAD CHANGED X2 R/T SPOTTING PRESENT. PT VOIDING URINE W/O DIFFICULTY. PT DENIED N/V, REP +FLATUS. PAIN MGD W/2 OXYCODONE W/REP RELIEF. KPAD PROVIDED FOR COMFORT. PT AMB W/SBA, DENIED DIZZINESS WHEN UP. PT EMOTIONAL AT TIMES, SUPPORT PROVIDED PRN.
[2022-10-25 06:52] LABS: Bun/Creatinine Ratio 13.6 (12.0-20.0); Calcium, Blood 7.5 mg/dL (8.5-10.1); Creatinine, Blood 0.59 mg/dL (0.40-1.00); Phosphorus, Blood 2.6 mg/dL (2.5-4.9)
[2022-10-25 07:21] VITALS: BP 104/58
[2022-10-25 12:01] LABS: Hematocrit 21.9 % (33.0-51.0); Hemoglobin 7.2 g/dL (11.5-16.0)
[2022-10-25 14:08] LABS: Potassium, Blood 3.8 mmol/L (3.5-5.5)
[2022-10-25 16:06] VITALS: BP 107/57
--- NOTE | 2022-10-25 16:39 | NUR ---
SUMMARY: PT IS POD2 TOTAL HYSTER. A/O, VSS. NO BLEED NOTED TODAY, SURGICAL SITES WNL, PT WEARING BINDER. HBG STABLE AND PT DENIES DIZZINESS. 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 DR. TONG IN ROOM THIS AFTERNOON AND REMOVED DRESSING AT MIDLINE ABD. SITE IS CDI. PAIN APPEARS TO BE MANAGED WELL WITH 10MG OXY. PT ABLE TO AMBULATE IN ROOM AND IN WAY TODAY AND VOID. NO ACUTE SAFETY CONCERNS.
[2022-10-25 20:08] VITALS: BP 109/68
[2022-10-26 04:23] VITALS: BP 106/53
--- NOTE | 2022-10-26 07:40 | NUR ---
SHIFT SUMMARY NOC. PT POD 3 FOR TOTAL ABDOMINAL HYSTERECTOMY. PT AMBULATING TO THE BATHROOM VOIDING URINE AND TOLERATING PO INTAKE. LOWER ABDOMINAL INCISION IS CLEAN AND OPEN TO AIR. NO DRAINAGE NOTED. NO DRAINAGE ON LIDA PAD. PT MEDICATED FOR PAIN AND GAS WITH RELIEF. PT A/O X4.
[2022-10-26 07:54] VITALS: BP 102/58
[2022-10-26 09:02] LABS: Hematocrit 22.1 % (33.0-51.0)
[2022-10-26] MEDS ORDERED: FERSU300 PO (11:50)
[2022-10-26] MEDS ORDERED: ACET500 PO (11:51)
[2022-10-26] MEDS ORDERED: IBU800 MG PO (11:51)
[2022-10-26] MEDS ORDERED: LORA.5 PO (11:52)
[2022-10-26] MEDS ORDERED: OXAYDO5 M1 PO (11:53)
[2022-10-26 14:57] VITALS: BP 114/65
--- NOTE | 2022-10-26 16:27 | NUR ---
DISCHARGED REVIEWED DC INSTRUCTIONS W/PT & SPOUSE; VERBALIZED UNDERSTANDING. DC'D POWERGLIDE IV, CATHETER INTACT. PT LEFT UNIT IN WC ACCOMPANIED BY SPOUSE WHO CARRIED POSSESSIONS AND DC PAPERWORK IN HAND.
== END 2022-10-26 16:28 | disposition home or self-care (01) | DRG 779 ==
LOC: ER 22:05 → SURS 22:06 → ER 10-23 03:13 → SURS 10-23 03:19 → ICUE 10-23 14:52 → SURS 10-23 14:52 → ICUE 10-23 17:32 → SURS 10-24 22:25
PROVIDERS: Anesthesiology; Obstetrics & Gynecology; Student in an Organized Health Care Education/Training Program; ADMIT Obstetrics & Gynecology
PROC: 0UB50ZZ Excision of Right Fallopian Tube, Open Approach (ICD-10-PCS; 2022-10-23)
PROC: 0TJB8ZZ Inspection of Bladder, Via Natural or Artificial Opening Endoscopic (ICD-10-PCS; 2022-10-23)
PROC: 30233N1 Transfusion of Nonautologous Red Blood Cells into Peripheral Vein, Percutaneous Approach (ICD-10-PCS; 2022-10-23)
PROC: 03HY32Z Insertion of Monitoring Device into Upper Artery, Percutaneous Approach (ICD-10-PCS; 2022-10-23)
PROC: 4A133B1 Monitoring of Arterial Pressure, Peripheral, Percutaneous Approach (ICD-10-PCS; 2022-10-23)
PROC: 4A133J1 Monitoring of Arterial Pulse, Peripheral, Percutaneous Approach (ICD-10-PCS; 2022-10-23)
PROC: 4A033R1 Measurement of Arterial Saturation, Peripheral, Percutaneous Approach (ICD-10-PCS; 2022-10-23)
PROC: 30233K1 Transfusion of Nonautologous Frozen Plasma into Peripheral Vein, Percutaneous Approach (ICD-10-PCS; 2022-10-23)
PROC: 0UT90ZZ Resection of Uterus, Open Approach (ICD-10-PCS; principal; 2022-10-23 20:00)
DX: O03.6 Delayed or excessive hemorrhage following complete or unspecified spontaneous abortion (principal); D62 Acute posthemorrhagic anemia; D25.0 Submucous leiomyoma of uterus; F41.1 Generalized anxiety disorder; F43.0 Acute stress reaction; Z88.2 Allergy status to sulfonamides; Z88.8 Allergy status to other drugs, medicaments and biological substances; Z91.018 Allergy to other foods; Z88.1 Allergy status to other antibiotic agents; Z79.899 Other long term (current) drug therapy
CPT/HCPCS: 36415; 36430; 36600; 51702; 76857; 80048; 80053; 82803; 83735; 84100; 85014; 85018; 85025; 85027; 85384; 85610; 85730; 86850; 86900; 86901; 86923; 88307; 94760; 96372; 96374; 96375; 99285-25; A9270; C1751; G0378; J0690; J1100; J1170; J1644; J1885; J2210; J2250; J2270; J2371; J2405; J2704; J2916; J3010; J7030; J7040; J7050; J7120; P9016; P9059

== ENCOUNTER → 2022-12-19 | Outpatient (CLI) | payer OTHER ==
[~2022-12-19] MED LIST changes: +ACET500 PO; +IBU800 MG PO; +LORA.5 PO; +MAGNESIUM OXID500 MG; +OMEGA-3 + VITA1 EAC2; +OXAYDO5 M1 PO; +UBID10; +Vitamin C100 M1
[2022-12-19 16:01] LABS: Candida species (DNA Probe) Negative (NEGATIVE); G. vaginalis (DNA Probe) Negative (NEGATIVE); T. vaginalis (DNA Probe) Negative (NEGATIVE)
== END ==
LOC: LAB 11:14 → LAB SHORT 11:14
PROVIDERS: Obstetrics & Gynecology
DX: N89.8 Other specified noninflammatory disorders of vagina (principal)
CPT/HCPCS: 87480; 87510; 87660